=== PATIENT | female | born 1970 | race Caucasian/White ===

== ENCOUNTER 2019-08-15 16:52 | Emergency (ER) | payer MEDICAID, SELFPAY ==
[2019-08-15] VITALS (29 sets, daily range): BP systolic 145–261; BP diastolic 85–149; PULSE 77–128; RESP 14–34; TEMP 36.5; O2SAT 94–100
--- NOTE | 2019-08-15 16:51 | DI.CT_ITS ---
EXAM: CT HEAD - STROKE PROTOCOL CLINICAL HISTORY: headache, facial droop. TECHNIQUE: Imaging Protocol: Axial computed tomography images with coronal and sagittal reformatted images were created and reviewed COMPARISON: No exams were available for comparison FINDINGS: Ventricles and Extra axial spaces: Please see below Hemorrhage: There is a large intraparenchymal hemorrhage present. It measures 4.3 x 2.7 x 4.5 cm. I t is centered in the right basal ganglia with extension into right thalamus inferiorly and the diggs radiata superiorly. There is intraventricular hemorrhage in the right lateral ventricle. There is a mass effect on the right lateral ventricle and 3rd ventricle with findings suggesting uncal herniat ion. There also appears to be a leftward shift of approximately 6 mm. Cerebral parenchyma: Intraparenchymal hemorrhage as described above. Midline shift: Please see above Brainstem/Cerebellum: Normal. Calvarium: Normal. Visualized Paranasal sinuses/Mastoids: Clear. Soft Tissues: Unremarkable. Limitations: There is significant patient motion artifact. IMPRESSION: Large intraparenchymal hemorrhage with intraventricular hemorrhage noted in the right lateral ventric le. It causes a mass effect on the right lateral ventricle and 3rd ventricle with findings suggestin g uncal herniation. There is a leftward shift of approximately 6 mm. RADIATION DOSE DELIVERED: DATA REPOSITORY: All CT scans at this facility are submitted to the National Radiology Data Registry (NRDR) Dose Index Registry (DIR) with the [employer] (A[employer]). RADIATION OPTIMIZATION: All CT scans at this facility use at least one of these dose optimization te chniques: automated exposure control; mA and/or kV adjustment per patient size (includes targeted exa ms where dose is matched to clinical indication); or iterative reconstruction.
--- NOTE | 2019-08-15 16:53 | DI.RAD_ITS ---
EXAM: XR PORTABLE CHEST AP CLINICAL HISTORY: CVA, weakness TECHNIQUE: 2D digital imaging was performed. COMPARISON: No exams were available for comparison FINDINGS: MEDIASTINUM: Normal. HEART: Normal. PULMONARY VASCULATURE: Normal. LUNGS: Mild atelectasis in the left lower lobe. PLEURAL SPACE: No pleural effusion or pneumothorax. BONE:Normal. OTHER FINDINGS:The endotracheal tube is at the level of the clavicles 6 cm from the fransisca. The naso gastric tube passes into the stomach. IMPRESSION: Mild atelectasis in the left lower lobe. DATA REPOSITORY: RADIATION DOSE DELIVERED:
--- NOTE | 2019-08-15 16:56 | DI.CT_ITS ---
EXAM: CT CERVICAL SPINE WO CLINICAL HISTORY: fall, headache. TECHNIQUE: Imaging Protocol: Axial computed tomography images with coronal and sagittal reformatted images were created and reviewed COMPARISON: No exams were available for comparison FINDINGS: The odontoid is intact. The lateral masses are well aligned. There is no acute fracture or subluxat ion. There is straightening of the normal cervical lordosis. This may be due to patient positioning or muscle spasm. 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 The soft tissues are unrema rkable. The lung apices are clear. Degenerative changes are seen in the cervical spine. IMPRESSION: No acute fracture or subluxation in the cervical spine. RADIATION DOSE DELIVERED: DATA REPOSITORY: All CT scans at this facility are submitted to the National Radiology Data Registry (NRDR) Dose Index Registry (DIR) with the [employer] (ACR). RADIATION OPTIMIZATION: All CT scans at this facility use at least one of these dose optimization te chniques: automated exposure control; mA and/or kV adjustment per patient size (includes targeted exa ms where dose is matched to clinical indication); or iterative reconstruction.
--- NOTE | 2019-08-15 16:56 | ED.GENADUL_ITS ---
Discharge Plan Discharge Details Chief Complaint: CVA/TIA Primary Care Provider: Natalie Mi ED Provider: Iraj Augustin Home Meds and New Rx's Prescriptions: No Action HYZAAR 1 TAB tablet 1 tab PO DAILY Qty: 90 RF: 3 IMITREX 100 MG tablet 100 mg PO PRN STAT MONTGOMERY Qty: 9 RF: 5 INDERAL 80 MG tablet 1.5 tab PO BID Qty: 270 RF: 3 PHENERGAN 12.5 MG/SUPP.RECT SUPP.RECT 1 supp.rect RC STAT PRN Qty: 9 RF: 2 Medical Decision Making 48-year-old female with a history of hypertension for which her record states she takes Hyzaar and Inderal. 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 EMS was called immediately after the onset approximately 1615 hrs. They state that she was hypertensive en route and developed vomiting for which she was given Zofran. Patient arrives to the ED with a pulse of 91, blood pressure 205/130 with an exam that revealed slurred speech, left facial droop with left hemiparesis of arm and leg. Patient referred for stat CT scan of the head which reveals a right intraparenchymal hemorrhage, centered at basal ganglia. She had fallen and therefore a CT scan of the cervical spine was obtained as well. The CT of the cervical spine showed no acute fracture or subluxation. The patient had progressive somnolence and became less responsive to voice, her gag reflex was depressed and I made the decision to intubate the patient, which was performed without difficulty. Given her hypertension, patient was started on nicardipine drip. She was also given 10 mg of labetalol. Sedation was initiated with midazolam drip as well as propofol. [facility] was contacted for transfer and patient accepted in transfer by Dr. Harper. Patient's records note her next of kin to be Silvio Walsh, her father, with a phone number listed as [phone]. I called this number with no answer. Finally, Dr. Harper and I had discussed performing CT angiogram if time allowed, CAROL[facility] arrived prior to the study being completed. Addendum: I discussed the patients presentation, findings, and transfer with her sister Jules Brasher Lab Data Lab results reviewed: Yes I reviewed the patient's lab results. Labs: Laboratory Results - last 24 hr 08/15/19 08/15/19 08/15/19 16:53 16:53 17:06 WBC 11.08 H RBC 5.35 H Hgb 16.3 H Hct 46.1 H MCV 86.2 MCH 30.5 MCHC 35.4 RDW 12.2 Plt Count 403 H MPV 11.3 H Immature Gran % 0.5 Neutrophils % 63.0 Lymphocytes % 27.7 Monocytes % 6.5 Eosinophils % 1.9 Basophils % 0.4 Absolute Neutrophils 6.98 H Absolute Lymphocytes 3.07 Absolute Monocytes 0.72 H Absolute Eosinophils 0.21 Absolute Basophils 0.04 PT 10.3 INR 1.0 Sodium 140 Potassium 3.3 L Chloride 103 Carbon Dioxide 23.6 Anion Gap 13.4 H BUN 14 Creatinine 0.94 Estimated GFR/1.73 m2 >= 60.00 Glucose 140 H Calcium 8.6 Magnesium 1.8 Total Bilirubin 0.6 AST 21 ALT 30 Alkaline Phosphatase 100 Troponin I < 0.05 Total Protein 8.1 Albumin 4.0 ECG Data Attestation: I personally reviewed and interpreted this ECG (s) as follows: Interpretation: Normal sinus rhythm, rate of 91, QRS is narrow, no ST segment elevation present. HPI General Mode of arrival: EMS . Date/Time Provider Initiated Documentation: 08/15/19 16:59 . Limitations to Documentation: altered mental status . Information obtained by: patient and EMS . History of Present Illness 48 year old F presents to the emergency department with the chief complaint of Headache and left-sided weakness abruptly prior to presentation, described as severe, and is localized to the head, left, upper extremity and lower extremity. Patient started experiencing this minute(s) and it has been constant. No relieving factors improve symptom(s), No exacerbating factors reported . Patient notes nausea/vomiting. Patient did receive the following treatments prior to arrival, other (Ondansetron) Related Data Home Medications Medication Instructions Recorded Confirmed Hyzaar 1 tab PO DAILY #90 12/30/10 Imitrex 100 mg PO PRN STAT MONTGOMERY #9 12/30/10 Inderal 1.5 tab PO BID #270 07/28/11 Phenergan 1 supp.rect RC STAT PRN #9 12/30/10 Allergies Allergy/AdvReac Type Severity Reaction Status Date / Time No Known Allergies Allergy Unverified 08/15/19 18:18 Review of Systems Narrative: Reported to occur approximately 1615 hrs. [facility] Social History Do you feel safe at home: Yes Do you feel safe in your relationship?: Yes Exam Narrative Exam Narrative: GEN: awake, alert, vomitus around oropharynx. HEAD: Normocephalic, atraumatic ENT: Mucous membranes moist, oropharynx unremarkable, External ear exam unremarkable EYES: PERRL, EOMI NECK: Full ROM, no ADAM, no menigismus CHEST/RESP: Nontender, clear to auscultation bilateral, no wheeze/rhonchi/rales CARDIOVASCULAR: RRR, no murmur, rub snow. 2+ Rad pulse bilateral ABDOMEN: Soft, nontender, no mass. +Bowel sounds EXT: Full ROM, no edema, no rash Neuro: Left facial droop, left arm and left leg hemiparalysis. Psych: Speech slurred Procedures Intubation Time out performed: Yes sedative: Etomidate Mg Given: 2 paralytic: Succinylcholine Mg Given: 100 Laryngoscope: Eric ET Tube Size: 7.5 ET Tube Uncuffed: Yes Tube Secured Depth (cm): 23 Tube Secured Location: teeth Tube Placement Confirmation: visualized tube passing through cords and equal breath sounds bilaterally Patient Tolerated Procedure: no complications Critical Care Time Critical Care Time Critical Care Time: Yes Total Critical Care Time: 60 Attestation: Exclusive of procedure time. Includes review of records, discussion with consultants, bedside management.
--- NOTE | 2019-08-15 17:15 | DI.VRAD_ITS ---
PROCEDURE INFORMATION: Exam: CT Head Without Contrast Exam date and time: 08/15/2019 4:52 PM Age: 48 years old Clinical indication: Altered mental status/memory loss TECHNIQUE: Imaging protocol: Computed tomography of the head without contrast. Other technique: STROKE PROTOCOL was implemented. COMPARISON: No relevant prior studies available. FINDINGS: Large area of acute hemorrhage centered in the right basal ganglia measuring 4.3 by 2.7 x 4.5 cm. There is prominent compression of the right lateral ventricle and 3rd ventricle and some extent even the left lateral ventricle. The 4th ventricle does not appear to be compressed. The basilar cisterns are still patent. However there is diffuse compression of the cortical sulci throughout both cerebral hemispheres. IMPRESSION: Large area of acute hemorrhage centered in the right basal ganglia with a moderate amount of mass effect upon the ventricles and cortical sulci. Small amount of blood is also seen in the frontal horn of the right lateral ventricle. These findings were discussed with Dr. Iraj Augustin by telephone at 5:13 p.m. Eastern standard time on August 15, 2019. Dictated and Authenticated by: Mansoor Li MD. Ordering:KEMAL Galo MD
[2019-08-15] MEDS: Ondansetron 4 MG/2 ML VIAL IVP (17:23)
--- NOTE | 2019-08-15 17:23 | DI.VRAD_ITS ---
PROCEDURE INFORMATION: Exam: CT Cervical Spine Without Contrast Exam date and time: 08/15/2019 4:57 PM Age: 48 years old Clinical indication: Injury or trauma; Fall; Work related; Initial encounter; Blunt trauma; Injury details: PT fell, current stroke TECHNIQUE: Imaging protocol: Computed tomography images of the cervical spine without contrast. COMPARISON: No relevant prior studies available. FINDINGS: No prevertebral soft tissue swelling. Slight reversal the normal cervical lordosis. No acute fracture or subluxation. C2-C3-no significant stenosis. Congenital fusion of C2 and C3. C4-C5-mild spurring of mildly narrowing the left neural foramen. U8-R9-oinnlarn loss of disc height. Moderate central disc osteophyte complex causing mild stenosis of the spinal canal and mild narrowing of both neural foramina C6-C7-mild left paracentral disc osteophyte complex causing mild stenosis of the spinal canal and mild narrowing of the entrance to the left neural foramen. IMPRESSION: 1. No acute fracture or subluxation. 2. Moderate degenerative changes as above Dictated and Authenticated by: Mansoor Li MD. Ordering:KEMAL Galo MD
[2019-08-15] MEDS: niCARdipine 25 MG in Normal Saline 240 ML 50 MG IV (17:24)
[2019-08-15] MEDS: Normal Saline 1,000 ML 150 ML IV (17:24)
[2019-08-15] MEDS: Succinylcholine 200 MG/10 ML VIAL 100 MG IVP (17:30)
[2019-08-15] MEDS: Etomidate 20 MG/10 ML VIAL IVP (17:30)
[2019-08-15] MEDS: MIDAZOLAM 50 MG in Normal Saline 90 ML IV (17:33)
[2019-08-15 17:36] LABS: Abs Immature Grans 0.06 k/cumm (0.0-0.09); Absolute Basophil Count 0.04 k/cumm (0.0-0.2); Absolute Eosinophil Count 0.21 k/cumm (0.0-0.7); Absolute Lymphocyte Count 3.07 k/cumm (1.2-3.4); Absolute Monocyte Count 0.72 k/cumm (0.11-0.7); Absolute Neutrophil Count 6.98 k/cumm (1.2-6.7); Basophils % 0.4; Eosinophils % 1.9; HCT 46.1 % (36.0-46.0); HGB 16.3 g/dL (12.0-15.5); Immature Grans % 0.5 %; Lymphocytes % 27.7; Mean Corp. HGB Concentration 35.4 g/dL (32.0-36.0); Mean Corpuscular Hemoglobin 30.5 pg (27.0-33.0); Mean Corpuscular Volume 86.2 fL (80-95); Mean Platelet Volume 11.3 fL (8.0-11.0); Monocytes % 6.5; Platelet Count 403 x1000/uL (130-400); RBC 5.35 m/cumm (4.00-5.20); RBC Distribution Width 12.2 % (11.7-14.6); White Blood Cell Count 11.08 k/cumm (4.4-10.8)
[2019-08-15] MEDS: Midazolam 2 MG/2 ML VIAL IVP (17:36)
[2019-08-15 17:37] LABS: Prothrombin Time 10.3 sec (9.3-11.0)
[2019-08-15 17:42] LABS: ALT 30 U/L (14-59); AST 21 U/L (15-37); Alkaline Phosphatase 100 U/L (46-116); Anion Gap 13.4 mmol/L (3-11); BUN 14 mg/dL (7-18); Bilirubin, Total 0.6 mg/dL (0.2-1.0); CO2 23.6 mmol/L (21.0-32.0); CREATININE 0.94 mg/dL (0.55-1.02); Calcium 8.6 mg/dL (8.5-10.1); Chloride 103 mmol/L (98-107); Glucose 140 mg/dL (74-106); Magnesium 1.8 mg/dL (1.8-2.4); Potassium 3.3 mmol/L (3.5-5.1); Sodium 140 mmol/L (136-145); Total Protein 8.1 g/dL (6.4-8.2); Troponin I < 0.05 ng/Ml (<0.06)
--- NOTE | 2019-08-15 17:43 | NUR.NOTE ---
Nursing Note: Respiratory at bedside (Caden). PT pre-oxygenated with BVM and supplemental oxygen at 15 lpm. OPA inserted. Medications administered by Real (20mg of Etomidate IVP and 100mg of Sux IVP: See MAR for administration details). MD Augustin intubated PT. 1730. ET tube marked: 23 at the teeth. ET tube bulb inflated with 10cc of air. ET tube placement confirmed the following: Direct visualization of the ET tube passing the vocal chords, Condensation in the tube, positive breath sounds in all lung graves, negative epigastric sounds, good compliance with BVM. ET tube wilson inserted. Pt placed on Vent, settings (RR of 15, TV 400, FI02 50, PEEP of 5%). Vitals at this time: BP 227/114, HR 114, RR 25, Airway secured.
[2019-08-15] MEDS: Propofol 200 MG/20 ML VIAL 60 MG IVP (17:57)
[2019-08-15] MEDS: PROPOFOL 500 MG/50 ML BTL 5.574 MG IVPB (17:59)
[2019-08-15] MEDS: Normal Saline Flush 10 ML SYR IVP (18:04)
[2019-08-15] MEDS: Labetalol 100 MG/20 ML VIAL 10 MG IVP (18:08)
--- NOTE | 2019-08-15 18:40 | NUR.NOTE ---
Nursing Note: PT report transferred to [facility] flight crew ( Angelique RN and Bereket Freelance Art Director). At the time of transfer ET tube was in place, vitals stable. All Pt care, information, treatments, medications, and interventions transferred at 1835. Pt transfer report called to [facility] discharge planner (Milagro).
--- NOTE | 2019-08-15 18:52 | DI.VRAD_ITS ---
PROCEDURE INFORMATION: Exam: XR Chest, 1 View Exam date and time: 08/15/2019 4:54 PM Age: 48 years old Clinical indication: Other: Stroke TECHNIQUE: Imaging protocol: XR of the chest Views: 1 view. COMPARISON: No relevant prior studies available. FINDINGS: Tubes, catheters and devices: Endotracheal tube its tip 6 cm proximal to the fransisca. NG tube is in the mid stomach. Lungs: Otherwise the lungs are fairly well expanded. Pleural space: Unremarkable. No pleural effusion. No pneumothorax. Heart/Mediastinum: Unremarkable. No cardiomegaly. Vasculature: Minimal crowding of vascular markings at the lung bases. Bones/joints: Unremarkable. IMPRESSION: Minimal atelectasis at the lung bases Dictated and Authenticated by: Mansoor Li MD. Ordering:KEMAL Galo MD
== END 2019-08-15 18:30 ==
LOC: ER 17:50
PROVIDERS: Emergency Provider Emergency Medicine; PCP Physician Assistant
DX: I61.5 Nontraumatic intracerebral hemorrhage, intraventricular (principal); I61.8 Other nontraumatic intracerebral hemorrhage; I10 Essential (primary) hypertension; R11.2 Nausea with vomiting, unspecified; I69.154 Hemiplegia and hemiparesis following nontraumatic intracerebral hemorrhage affecting left non-dominant side; R40.0 Somnolence
CPT/HCPCS: 31500; 36415; 36416; 51702; 80053; 82962; 93005; 96365; 96368; 96375; 96376; 99291; 70450; 71045; 72125; 83735; 84484; 85025; 85610; 93010; J2250; J2405; J2704; J3490

== ENCOUNTER 2020-04-08 12:36 | Outpatient (CLI) | payer MEDICAID, SELFPAY ==
--- NOTE | 2020-04-08 10:32 | DI.RAD_ITS ---
EXAM: XR KNEE LT 4V AP,LAT,DEONNA,PAT CLINICAL HISTORY: fell on the left knee,injury, pain,s89.92xa. TECHNIQUE: 2D digital imaging was performed. COMPARISON: No exams were available for comparison FINDINGS: BONES: No acute fracture is present. No bony destructive lesion is seen. JOINTS: The knee is normally aligned. No joint effusion is seen. SOFT TISSUE: Normal. IMPRESSION: No acute fracture or dislocation. DATA REPOSITORY: RADIATION DOSE DELIVERED:
== END 2020-04-08 12:56 ==
PROVIDERS: PCP Family Medicine; Visit Provider Family Medicine
DX: M25.562 Pain in left knee (principal)
CPT/HCPCS: 73564

== ENCOUNTER 2020-04-16 01:33 | Outpatient (CLI) | payer MEDICAID, SELFPAY ==
--- NOTE | 2020-04-16 14:00 | NS.NUTBLAN_ITS ---
Thao and her mother attended Medical Nutrition Therapy for Thao for low sodium diet education s/p stroke Thao had in August 2019. Medical chart indicates 20 lbs weight in last 6 months, BMI: 31. Thao has not regained us of her legs or her left hand and is cared for by her mother. Thao is treated with metropolol 150 mg BID. Her BP tends to run 130-140/90-100. Here today to get education on how to best follow low sodium, DASH diet for cardiac health. Diet recall indicates mostly home cooked meals but with high intakes of salt (chips, arnold, chicken strips) and moderate intakes of vegetables, fish and legumes. Thao also drinks 2-3 cups coffee and 2-3 cups of coke daily. Education today focused on meal plans that fit entire family and what to add to provide Thao with more monounstaturated fats, seafood, legumes, and increased intake of fruits and vegetables. Meal plans provided. Encouraged reduction in caffeinated beverages to no more than 3 daily. Encouraged reading labels and avoiding foods with > 250 mg sodium per serving, keeping total sodium intake to < 1500 mg daily. No follow up visit planned. Thao and mother have contact information for questions/concerns in future.
== END 2020-04-16 01:53 ==
PROVIDERS: PCP Family Medicine; Visit Provider Dietitian, Registered
DX: I10 Essential (primary) hypertension (principal); Z86.73 Personal history of transient ischemic attack (TIA), and cerebral infarction without residual deficits; Z71.3 Dietary counseling and surveillance
CPT/HCPCS: 97802

== ENCOUNTER 2021-07-05 00:24 | Outpatient (CLI) | payer MEDICAID, SELFPAY ==
--- NOTE | 2021-07-05 07:30 | DI.RAD_ITS ---
Exam(s) XR LUMBAR SPINE COMPLETE EXAM: XR LUMBAR SPINE COMPLETE CLINICAL HISTORY: LOW BACK PAIN, M54.50. TECHNIQUE: 2D digital imaging was performed. COMPARISON: No exams were available for comparison FINDINGS: BONES: No fracture or destructive lesion. Vertebral bodies are unremarkable. Mild L4-5 L5-S1. Facet hypertrophy identified. DISKS: Intervertebral disc spaces are maintained. L5-S1 disc space not well profiled. ALIGNMENT: Lumbar spinal alignment is within normal limits. SOFT TISSUE: Mild aortic calcification. IMPRESSION: Mild degenerative changes. DATA REPOSITORY: RADIATION DOSE DELIVERED:
== END 2021-07-05 00:44 ==
PROVIDERS: PCP Family Medicine; Visit Provider Family Medicine
DX: M54.59 Other low back pain (principal); M47.817 Spondylosis without myelopathy or radiculopathy, lumbosacral region
CPT/HCPCS: 72110

== ENCOUNTER 2022-02-16 01:52 | Outpatient (CLI) | payer MEDICAID, SELFPAY ==
[2022-02-16 13:13] LABS: ALT 74 U/L (14-59); AST 43 U/L (15-37); Albumin 3.9 g/dL (3.4-5.0); Alkaline Phosphatase 87 U/L (46-116); Anion Gap 8.7 mmol/L (3-11); BUN 12 mg/dL (7-18); Bilirubin, Total 1.1 mg/dL (0.2-1.0); CO2 31.3 mmol/L (21.0-32.0); Calcium 9.3 mg/dL (8.5-10.1); Calculated LDL 157 mg/dL (<100); Chloride 99 mmol/L (98-107); Cholesterol 231 mg/dL (<200); Estimated GFR 67.36 (mL/min/1.73m2); Glucose 118 mg/dL (74-106); HDL Cholesterol 40 mg/dL (40-60); Potassium 3.7 mmol/L (3.5-5.1); Sodium 139 mmol/L (136-145); TSH (W/Ref FT4) 0.92 uIU/mL (0.36-3.74); Total Protein 8.4 g/dL (6.4-8.2); Triglyceride 172 mg/dL (<150)
[2022-02-20 17:00] LABS: Renin Activity, Plasma 11 ng/mL/h
== END 2022-02-16 01:53 | disposition home or self-care (01) ==
LOC: LOS 01:52
PROVIDERS: PCP Family Medicine; Visit Provider Family Medicine
DX: I10 Essential (primary) hypertension (principal); I63.89 Other cerebral infarction
CPT/HCPCS: 36415; 80053; 80061; 84244; 84443

== ENCOUNTER → 2022-04-11 01:41 | Outpatient (CLI) | payer MEDICAID, SELFPAY ==
--- NOTE | 2022-04-11 07:45 | DI.MAMMO_ITS ---
Exam(s) MG MAMMO SCREENING 60 MIN DUR EXAM: MG MAMMO SCREENING 60 MIN DUR CLINICAL HISTORY: breast cancer screening,z12.39. TECHNIQUE: Bilateral full field digital CC and MLO mammographic images were obtained with 3D tomosyn thesis and utilizing computer aided detection (CAD). COMPARISON: None. Last mammogram was in 2009. FINDINGS: There are no CAD designations. There are no new spiculated masses nor malignant appearing microcalcification groups. There is no significant architectural distortion nor skin thickening-retraction. IMPRESSION: No radiographic evidence of malignancy. BI-RADS Category 1 - Negative Breast Density - Category B - Scattered areas of fibroglandular density Breast density Category C or D implies that the patient has dense breast tissue. Dense breast tissue can make it harder to find cancer on a mammogram. Dense breast tissue is also associated with an incr eased risk of breast cancer. This information about the result of the mammogram report was provided to the patient to raise their awareness. Use this report when you speak with the patient about their risks for breast cancer, which includes their family history. At that time, you may recommend additional screening tests (Ultrasoun d or MRI) as these tests may add significant information. A negative radiographic report should not delay biopsy if a dominant or clinically suspicious mass is present. Up to ten percent of cancers are not identified on mammography. A negative report may reinforce clinical impression. Adenosis and dense breasts may obscure an underlying neoplasm. False positive reports average 6 to 10%. Patient will receive a letter notifying them of these results.
== END ==
PROVIDERS: PCP Family Medicine; Visit Provider Family Medicine
DX: Z12.31 Encounter for screening mammogram for malignant neoplasm of breast (principal)
CPT/HCPCS: 77063; 77067

== ENCOUNTER 2022-08-08 12:56 | Outpatient (REF) | payer MEDICAID, SELFPAY ==
--- NOTE | 2022-08-08 10:30 | PAPFT_PTH ---
PATIENT: Thao Walsh LOC: [facility]#:[id number] AGE/SX: 51/F ROOM: RE08/08/[address]: Conchis Light MD, DC : 1970 BED: DIS: 08/08/2022 SPEC #: [id number] RECD: 08/08/22 13:13 STATUS: DENI REQ #: [id number] VALERIA: 08/08/22 10:[address]: Conchis Light [facility]PT: [facility] Cytology RECD BY: Belle Rodriguez Tissues: 1 - CX/ENDOCX FOR PAP SMEARS Procedures: PAP THIN PREP/UVM Screening HPV DNA PROBE Comments: [id number]
== END 2022-08-08 12:57 | disposition home or self-care (01) ==
LOC: LBN 12:56
PROVIDERS: PCP Family Medicine; Visit Provider Family Medicine
DX: Z12.4 Encounter for screening for malignant neoplasm of cervix (principal); Z11.51 Encounter for screening for human papillomavirus (HPV)
CPT/HCPCS: 88142; 87624

== ENCOUNTER → 2022-12-14 01:23 | Outpatient (CLI) | payer MEDICAID, SELFPAY ==
--- NOTE | 2022-12-14 08:15 | DI.RAD_ITS ---
Exam(s) XR RIBS RT W PA LAT CHEST EXAM: XR RIBS RT W PA LAT CHEST CLINICAL HISTORY: pain,rib injury,s29.9xxa TECHNIQUE: 2D digital imaging was performed. COMPARISON: CR,XR XR PORTABLE CHEST AP from 08/15/2019 FINDINGS: RIBS 3 VIEWS-right There is a fracture of the anterolateral aspect of the right 7th rib. No other rib fractures identif ied. No osseous lesions in the rib cage. CXR- 2 VIEWS: No lung contusion or pneumothorax. There is no pleural effusion evident. Heart size is normal and there is no significant mediastinal widening. IMPRESSION: 1. Mildly displaced right 7th rib fracture. 2. No ipsilateral lung nor pleural abnormality evident. No pneumothorax. DATA REPOSITORY: RADIATION DOSE DELIVERED:
== END ==
PROVIDERS: PCP Family Medicine; Visit Provider Physician Assistant Medical
DX: R07.89 Other chest pain (principal); R07.81 Pleurodynia; S22.31XA Fracture of one rib, right side, initial encounter for closed fracture
CPT/HCPCS: 71046; 71100

== ENCOUNTER → 2023-05-24 02:04 | Outpatient (CLI) | payer MEDICAID, SELFPAY ==
--- NOTE | 2023-05-24 07:45 | DI.MAMMO_ITS ---
Exam(s) MG MAMMO SCREENING 60 MIN DUR EXAM: MG MAMMO SCREENING 60 MIN DUR CLINICAL HISTORY: breast cancer screening,Z12.39. TECHNIQUE: Bilateral full field digital CC and MLO mammographic images were obtained with 3D tomosyn thesis and utilizing computer aided detection (CAD). COMPARISON: Prior mammograms were reviewed. FINDINGS: There are no new spiculated masses nor malignant appearing microcalcification groups. There is no significant architectural distortion nor skin thickening-retraction. IMPRESSION: No radiographic evidence of malignancy. BI-RADS Category 1 - Negative Breast Density - Category B - Scattered areas of fibroglandular density Breast density Category C or D implies that the patient has dense breast tissue. Dense breast tissue can make it harder to find cancer on a mammogram. Dense breast tissue is also associated with an incr eased risk of breast cancer. This information about the result of the mammogram report was provided to the patient to raise their awareness. Use this report when you speak with the patient about their risks for breast cancer, which includes their family history. At that time, you may recommend additional screening tests (Ultrasoun d or MRI) as these tests may add significant information. A negative radiographic report should not delay biopsy if a dominant or clinically suspicious mass is present. Up to ten percent of cancers are not identified on mammography. A negative report may reinforce clinical impression. Adenosis and dense breasts may obscure an underlying neoplasm. False positive reports average 6 to 10%. Patient will receive a letter notifying them of these results.
== END ==
PROVIDERS: PCP Family Medicine; Visit Provider Family Medicine
DX: Z12.31 Encounter for screening mammogram for malignant neoplasm of breast (principal)
CPT/HCPCS: 77063; 77067

== ENCOUNTER 2023-07-04 02:25 | Outpatient (CLI) | payer MEDICAID, SELFPAY ==
[2023-07-04 13:08] LABS: ALT 72 U/L (14-59); AST 44 U/L (15-37); Albumin 3.7 g/dL (3.4-5.0); Alkaline Phosphatase 104 U/L (46-116); Anion Gap 8.1 mmol/L (3-11); BUN 8 mg/dL (7-18); Bilirubin, Total 0.8 mg/dL (0.2-1.0); CO2 29.9 mmol/L (21.0-32.0); CREATININE 0.8 mg/dL (0.55-1.02); Calculated LDL 122 mg/dL (<100); Chloride 102 mmol/L (98-107); Cholesterol 220 mg/dL (<200); Glucose 101 mg/dL (74-106); HDL Cholesterol 44 mg/dL (40-60); Potassium 3.5 mmol/L (3.5-5.1); Sodium 140 mmol/L (136-145); TSH (W/Ref FT4) 1.68 uIU/mL (0.36-3.74); Total Protein 8.2 g/dL (6.4-8.2); Triglyceride 273 mg/dL (<150); Vitamin B12 893 pg/mL (193-986)
== END 2023-07-04 02:26 | disposition home or self-care (01) ==
LOC: LOS 02:26
PROVIDERS: PCP Family Medicine; Visit Provider Family Medicine
DX: I10 Essential (primary) hypertension (principal); R79.89 Other specified abnormal findings of blood chemistry; E03.9 Hypothyroidism, unspecified
CPT/HCPCS: 36415; 80053; 80061; 82607; 84443

== ENCOUNTER 2023-09-07 10:11 | Outpatient (CLI) | payer MEDICAID, SELFPAY ==
[2023-09-07 12:55] LABS: Hemoglobin A1C 5.5 % (<5.7)
[2023-09-07 12:56] LABS: ALT 48 U/L (14-59); AST 28 U/L (15-37); Albumin 3.7 g/dL (3.4-5.0); Alkaline Phosphatase 102 U/L (46-116); BUN 15 mg/dL (7-18); Bilirubin, Total 0.8 mg/dL (0.2-1.0); CREATININE 0.8 mg/dL (0.55-1.02); Calculated LDL 147 mg/dL (<100); Chloride 101 mmol/L (98-107); Cholesterol 222 mg/dL (<200); Glucose 122 mg/dL (74-106); HDL Cholesterol 48 mg/dL (40-60); Potassium 3.3 mmol/L (3.5-5.1); Sodium 141 mmol/L (136-145); Triglyceride 136 mg/dL (<150)
== END 2023-09-07 10:12 | disposition home or self-care (01) ==
LOC: LOS 10:12
PROVIDERS: PCP Family Medicine; Referring Provider Family Medicine; Visit Provider Family Medicine
DX: I10 Essential (primary) hypertension (principal); E11.9 Type 2 diabetes mellitus without complications
CPT/HCPCS: 36415; 80053; 80061; 83036

== ENCOUNTER 2024-05-01 10:48 | Observation (INO) | payer MEDICAID, SELFPAY ==
[2024-05-01] VITALS (33 sets, daily range): BP systolic 85–125; BP diastolic 48–81; PULSE 55–72; RESP 12–23; TEMP 36.1–37; O2SAT 88–98
--- NOTE | 2024-05-01 10:45 | RT.EKG_ITS ---
APPROVED REPORT Exam: Resting ECG Reason for Exam: lethargic hx stroke Patient Location: E HR:64 bpm ECG Measurements Heart Rate 64 AXIS FL 157 P 39 QRSd 96 QRS 5 QT 459 T 42 QTc 475 Conclusion Sinus rhythm...normal P axis, V-rate 60- 99 Low voltage, precordial leads...precordial leads <1.0mV
--- NOTE | 2024-05-01 11:05 | DI.CT_ITS ---
Exam(s) CT BRAIN NECK CTA EXAM: CT BRAIN NECK CTA CLINICAL HISTORY: slurred speech. TECHNIQUE: Imaging Protocol: Axial CT angiography was performed with multi-slice acquisition and mu lti-planar and/or 3D reconstructions. CONTRAST MATERIAL: Intravenous: Omnipaque 350 contrast volume:70 mL COMPARISON: CT CT CERVICAL SPINE WO from 08/15/[address] HEAD - STROKE PROTOCOL from 08/15/2019 FINDINGS: CT Head W/O and W: Ventricles and Extra axial spaces: Normal in size and morphology for the patient's age. Hemorrhage: None. Cerebral parenchyma: There is an a area of encephalomalacia involving the right MCA distribution. The patient had a history of a right intraparenchymal hemorrhage. There are areas of decreased attenuati on seen in the white matter likely reflecting chronic microvascular ischemic disease. There is no mas s effect. There is again seen an area of encephalomalacia in the left cerebellum. Incidental note is what appears to be a venous angioma in the right frontal lobe. Midline shift: None. Brainstem/Cerebellum: Normal. Calvarium: Normal. Visualized Paranasal sinuses/Mastoids: Mucosal thickening is seen in the visualized paranasal sinuses but no fluid levels are seen. The mastoid air cells are clear. Soft Tissues: Unremarkable. Enhancement: Unremarkable. CTA Neck W: Common Carotid: Right: No dissection, occlusion or significant stenosis. There is mild atherosclerotic calcification in the carotid bulb. Left: No dissection, occlusion or significant stenosis. Mild atherosclerotic calcification is seen i n the carotid bulb. External Carotid: Right: No occlusion or significant stenosis. Left: No occlusion or significant stenosis. Internal Carotid: Right: No dissection, occlusion or significant stenosis. There is marked stenosis at the origin of t he right internal carotid artery (at least 90 percent). (Series 11, image 65). Left: No dissection, occlusion or significant stenosis. Mild atherosclerotic calcification is presen t. Vertebral Artery: Right: No dissection, occlusion or significant stenosis. Left: No dissection, occlusion or significant stenosis. Lung Apices: Paraseptal emphysematous changes are present. Bones: Within normal limits for the patient's age. There is reversal of the normal cervical lordosis. 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 Soft Tissues: Normal. Thyroid gland: Unremarkable. CTA Brain W: Internal Carotid Arteries: Normal. Anterior Cerebral Arteries: Right: No aneurysm, occlusion or significant stenosis. Left: No aneurysm, occlusion or significant stenosis. Middle Cerebral Arteries: Right: No aneurysm, occlusion or significant stenosis. Left: No aneurysm, occlusion or significant stenosis. Posterior Cerebral Arteries: There is origin of the posterior cerebral arteries bilaterally. Th is is a normal variant. Right: No aneurysm, occlusion or significant stenosis. Left: No aneurysm, occlusion or significant stenosis. Vertebral Arteries: Right: No aneurysm, occlusion or significant stenosis. 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 Left: No aneurysm, occlusion or significant stenosis. Basilar Artery: No aneurysm, occlusion or significant stenosis. IMPRESSION: 1. No large vessel occlusion or significant stenosis on the CT angiography of the head. 2. No acute intracranial process. 3. At least 90 percent stenosis at the origin of the right internal carotid artery. 4. Hypoplastic right vertebral artery. RADIATION DOSE DELIVERED: 1,967.44mGy.cm Total DLP DATA REPOSITORY: All CT scans at this facility are submitted to the National Radiology Data Registry (NRDR) Dose Index Registry (DIR) with the [employer] (ACR). RADIATION OPTIMIZATION: All CT scans at this facility use at least one of these dose optimization te chniques: automated exposure control; mA and/or kV adjustment per patient size (includes targeted exa ms where dose is matched to clinical indication); or iterative reconstruction.
--- NOTE | 2024-05-01 11:07 | W.ED.GENAD ---
Discharge Plan Disposition Patient Disposition: Admit to [facility] Discharge Details Clinical Impression: DANIEL (acute kidney injury), Hypokalemia Primary Care Provider: [facility] ED Provider: Gabriela Mejias Home Meds and New Rx's Prescriptions: No Action diclofenac potassium 50 mg tablet 50 mg PO BID Qty: 20 0RF Rx Instructions: Take with food, do not take any [id number] anti-inflammatories with this. potassium chloride 10 mEq tablet extended release 20 meq PO DAILY Qty: 180 4RF pregabalin [Lyrica] 50 mg capsule 50 mg PO TID Qty: 90 5RF (DME) E stim See Rx Instructions .Route .MEDSUPPLY Qty: 1 0RF Rx Instructions: For neuromuscular re-education following her thalamic stroke meloxicam 15 mg tablet 15 mg PO DAILY PRN (Reason: left knee pain) Qty: 90 0RF Rx Instructions: use sparingly as it can increase blood pressure atorvastatin 40 mg tablet 40 mg PO QPM Qty: 90 4RF duloxetine 30 mg capsule,delayed release(DR/EC) 30 mg PO QDAY Qty: 90 4RF Rx Instructions: take in PM duloxetine 60 mg capsule,delayed release(DR/EC) 60 mg PO DAILY Qty: 90 4RF Rx Instructions: take in AM metoprolol succinate 200 mg tablet extended release 24 hr 200 mg PO BID Qty: 180 3RF Rx Instructions: mid to late afternoon take BP and if less than 90/60, hold the evening dose hydrochlorothiazide 25 mg tablet 25 mg PO QAM Qty: 90 4RF doxazosin 1 mg tablet 2 mg PO QHS Qty: 180 4RF pantoprazole 20 mg tablet,delayed release (DR/EC) 20 mg PO DAILY Qty: 90 4RF cyanocobalamin (vitamin B-12) 1,000 mcg tablet 1,000 mcg PO DAILY Qty: 90 4RF melatonin 5 mg capsule 5 mg PO HS Qty: 90 4RF multivitamin with minerals Capsule 1 cap PO DAILY Qty: 90 4RF baclofen 5 mg tablet 5 mg PO BID Qty: 180 3RF diclofenac sodium 1 % gel 2 g topical QID Qty: 100 3RF Rx Instructions: apply to single elbow, wrist or hand; for hand includes palm/fingers/back of hand mirabegron 50 mg tablet extended release 24 hr 50 mg PO DAILY Qty: 90 4RF losartan 100 mg tablet 100 mg PO DAILY Qty: 90 6RF HPI General Date/Time Provider Initiated Documentation: 05/01/24 10:49. HPI Narrative: Thao is a 53 year old female who presents to the emergency department today for evaluation of altered mental status/slurred speech. Sister and caregiver reported to EMS that this morning she woke up with slurred/slowed speech and did not quite seem like herself. This resolved by the time ambulance arrived. On arrival EMS found her to be hypotensive, blood pressure systolic 80. She reports she woke up this morning feeling tired with quiet speech, denies feeling like her speech is slurred or feeling of confusion. She was able to transfer to her chair and to the stretcher. She denies fever/chills, headache, vision changes, dizziness, congestion, sore throat, ear pain, cough, chest pain, shortness of breath, nausea/vomiting, change in p.o. intake, abdominal pain, change in bowel or bladder function, black/tarry stools, weakness, paresthesias. She think she may have taken 2 doses of her losartan this morning by accident. Denies substance use or supplement use. She does have a history of stroke with left hemiparesis affecting the left side of her face, arm, and leg. Past medical history is significant for right thymic stroke, hypertension, and elevated LFTs. No known ill contacts. Last known well last night. Physical exam reassuring. Gaye is alert and oriented x 4, in no acute distress. She does have clear speech, slightly slow but appropriate. Cranial nerves II through XII intact as tested. PERRL, EOMs intact. Moist mucous membranes. Easy work of breathing, lung sounds clear bilaterally. Normal heart sounds. Abdomen is soft, nondistended, nontender to palpation. No CVA tenderness. 5 out of 5 muscle strength to upper and lower extremity on right side; sensation grossly intact. No pronator drift. D/dx includes but is not limited to: CVA/TIA (outside window for thrombolytics), ACS, cardiac arrhythmia, hypoglycemia, electrolyte imbalance, dehydration, liver or kidney dysfunction, occult infection such as UTI or PNA, antihypertensive overdose I independently interpreted the following tests: EKG reassuring, NSR rate 64, no changes c/w acute ischemia. Hypokalemia noted, potassium 3.0. Concern for DANIEL with creatinine elevated at 1.6, 0.8 previously on 09/07/2023. CBC, magnesium, COVID/flu/RSV reassuring. Troponins negative (5,6). UA not consistent with UTI; only trace leuks noted. CXR and head CT reassuring, no acute findings. While in the emergency department, Thao received p.o. potassium for supplementation and 500 cc normal saline started by EMS for blood pressure support. A a liter of Plasma-Lyte was administered to help maintain blood pressure support, as systolic remained in the 90s. Workup today significant for hypokalemia with DANIEL, with creatinine doubling since previous. Likely related to incorrect dosing of losartan. Presented case to Dr. Ramirez, [facility] hospitalist. Patient to be admitted to [facility]. Patient is agreeable with plan of care Related Data Home Medications ?Medication ?Instructions ?Recorded ?Confirmed diclofenac potassium 50 mg tablet 50 mg PO BID #20 tabs 12/13/22 05/01/24 E stim #1 ea 02/20/23 05/01/24 meloxicam 15 mg tablet 15 mg PO DAILY PRN left knee pain 02/20/23 05/01/24 #90 tabs atorvastatin 40 mg tablet 40 mg PO QPM #90 tabs 09/07/23 05/01/24 duloxetine 30 mg capsule,delayed 30 mg PO QDAY #90 caps 01/01/24 05/01/24 release duloxetine 60 mg capsule,delayed 60 mg PO DAILY #90 caps 01/01/24 05/01/24 release cyanocobalamin (vitamin B-12) 1,000 mcg PO DAILY #90 tabs 02/24/24 05/01/24 1,000 mcg tablet doxazosin 1 mg tablet 2 mg (2 x 1 mg) PO QHS #180 tabs 02/24/24 05/01/24 hydrochlorothiazide 25 mg tablet 25 mg PO QAM #90 tabs 02/24/24 05/01/24 melatonin 5 mg capsule 5 mg PO HS #90 caps 02/24/24 05/01/24 metoprolol succinate 200 mg 200 mg PO BID #180 tabs 02/24/24 05/01/24 tablet,extended release 24 hr multivitamin with minerals 1 cap PO DAILY #90 caps 02/24/24 05/01/24 pantoprazole 20 mg tablet,delayed 20 mg PO DAILY #90 tabs 02/24/24 05/01/24 release baclofen 5 mg tablet 5 mg PO BID #180 tabs 03/13/24 05/01/24 potassium chloride 10 mEq 20 meq (2 x 10 mEq) PO DAILY #180 03/25/24 05/01/24 tablet,extended release tabs pregabalin 50 mg capsule (Lyrica) 50 mg PO TID #90 caps 03/25/24 05/01/24 diclofenac sodium 1 % topical gel 2 g topical QID #100 grams 04/08/24 05/01/24 mirabegron 50 mg tablet,extended 50 mg PO DAILY #90 tabs 04/08/24 05/01/24 release 24 hr losartan 100 mg tablet 100 mg PO DAILY #90 tabs 04/24/24 05/01/24 Previous Rx's ?Medication ?Instructions ?Recorded diclofenac potassium 50 mg tablet 50 mg PO BID #20 tabs 12/13/22 E stim #1 ea 02/20/23 meloxicam 15 mg tablet 15 mg PO DAILY PRN left knee pain 02/20/23 #90 tabs atorvastatin 40 mg tablet 40 mg PO QPM #90 tabs 09/07/23 duloxetine 30 mg capsule,delayed 30 mg PO QDAY #90 caps 01/01/24 release duloxetine 60 mg capsule,delayed 60 mg PO DAILY #90 caps 01/01/24 release cyanocobalamin (vitamin B-12) 1,000 mcg PO DAILY #90 tabs 02/24/24 1,000 mcg tablet doxazosin 1 mg tablet 2 mg (2 x 1 mg) PO QHS #180 tabs 02/24/24 hydrochlorothiazide 25 mg tablet 25 mg PO QAM #90 tabs 02/24/24 melatonin 5 mg capsule 5 mg PO HS #90 caps 02/24/24 metoprolol succinate 200 mg 200 mg PO BID #180 tabs 02/24/24 tablet,extended release 24 hr multivitamin with minerals 1 cap PO DAILY #90 caps 02/24/24 pantoprazole 20 mg tablet,delayed 20 mg PO DAILY #90 tabs 02/24/24 release baclofen 5 mg tablet 5 mg PO BID #180 tabs 03/13/24 potassium chloride 10 mEq 20 meq (2 x 10 mEq) PO DAILY #180 03/25/24 tablet,extended release tabs pregabalin 50 mg capsule (Lyrica) 50 mg PO TID #90 caps 03/25/24 diclofenac sodium 1 % topical gel 2 g topical QID #100 grams 04/08/24 mirabegron 50 mg tablet,extended 50 mg PO DAILY #90 tabs 04/08/24 release 24 hr losartan 100 mg tablet 100 mg PO DAILY #90 tabs 04/24/24 Allergies Allergy/AdvReac Type Severity Reaction Status Date / Time atenolol AdvReac h/a's Verified 03/25/24 09:18 gold Au 198 AdvReac dermatitis Verified 03/25/24 09:18 General Stated Complaint: AMS/LOC CHOLO: 3 Review of Systems Narrative: see HPI Exam Const General: cooperative, comfortable, no acute distress and well developed Nutritional Appearance: overweight Orientation: alert and oriented x3 HENMT Head: normal to inspection Ears: hearing grossly normal bilaterally General nose exam: external nose normal Face and sinus: normal facial exam Mouth: oral mucosae normal, lip normal, tongue normal, oropharynx normal and no muffled voice Throat: posterior oropharynx normal and uvula midline Eyes Pupils: PERRL EOM: EOM intact bilaterally Resp Effort & Inspection: normal respiratory effort and able to speak in complete sentences Auscultation: clear to auscultation bilaterally Cardio Rate: regular rate Rhythm: regular rhythm GI Inspection: normal to inspection and non-distended Palpation: soft, not firm, no guarding and nontender General: No CVA tenderness Back/Spine/Pelvis Back: no CVA tenderness Neuro General: patient alert, patient oriented x3 and CN's II-XI intact bilaterally Cranial Nerves: CN's II-XI intact bilaterally, PERRL, EOM intact bilaterally, no nystagmus, facial strength normal (some weakness noted to L side of face (baseline)) and tongue midline Cognition: normal cognition Speech: speech normal Sensory Exam: no sensory deficits noted Other: 5 out of 5 muscle strength to upper and lower extremity on right side, weakness noted to left side per baseline Extrem General: capillary refill normal and no pedal edema Course Vital Signs Vital signs: Vital Signs Temperature 36.1 C L 05/01/24 10:51 Pulse 66 05/01/24 10:51 Respiratory Rate 18 05/01/24 10:51 Blood Pressure 94/51 L 05/01/24 10:51 Pulse Oximetry 96 05/01/24 10:51 Temperature 36.1 C L 05/01/24 10:51 Pulse 66 05/01/24 10:51 Respiratory Rate 18 05/01/24 10:51 Respiratory Effort Normal, Non-Labored 05/01/24 11:00 Blood Pressure 94/51 L 05/01/24 10:51 Pulse Oximetry 96 05/01/24 10:51 Medical Decision Making Imaging Data Radiologic Study: Radiologist's impression: Exam(s) XR CHEST 2V PA LATERAL EXAM: XR CHEST 2V PA LATERAL CLINICAL HISTORY: lethargy, ?PNA TECHNIQUE: 2D digital imaging was performed of the chest. Two images were obtained. PA and lateral views were obtained. COMPARISON: CR XR RIBS RT W PA LAT CHEST from 12/14/2022 FINDINGS: The lateral view is limited secondary to overlying left humerus. MEDIASTINUM: Normal. HEART: Normal. PULMONARY VASCULATURE: Normal. LUNGS: Clear. PLEURAL SPACE: No pleural effusion or pneumothorax. Pleural calcifications are again seen in the left hemithorax. BONE:Within normal limits for the patient's age. There are old healed left rib fractures again seen. There is inferior subluxation of the left humeral head relative to the glenoid. OTHER FINDINGS:Normal. IMPRESSION: 1. No acute pulmonary findings. 2. Inferior subluxation of the left humeral head relative to the glenoid. Radiologic Study #2: Radiologist's impression: Accession No. : [id number] Creator : NU RUELAS Dictator : NU RUELAS Direct Marketing Executive : Mattress Finisher : NU RUELAS Approver2 : Report Date : 05/01/2024 12:31:29 Exam(s) CT BRAIN NECK CTA EXAM: CT BRAIN NECK CTA CLINICAL HISTORY: slurred speech. TECHNIQUE: Imaging Protocol: Axial CT angiography was performed with multi-slice acquisition and multi-planar and/or 3D reconstructions. CONTRAST MATERIAL: Intravenous: Omnipaque 350 contrast volume:70 mL COMPARISON: CT CT CERVICAL SPINE WO from 08/15/[address] HEAD - STROKE PROTOCOL from 08/15/2019 FINDINGS: CT Head W/O and W: Ventricles and Extra axial spaces: Normal in size and morphology for the patient's age. Hemorrhage: None. Cerebral parenchyma: There is an a area of encephalomalacia involving the right MCA distribution. The patient had a history of a right intraparenchymal hemorrhage. There are areas of decreased attenuation seen in the white matter likely reflecting chronic microvascular ischemic disease. There is no mass effect. There is again seen an area of encephalomalacia in the left cerebellum. Incidental note is what appears to be a venous angioma in the right frontal lobe. Midline shift: None. Brainstem/Cerebellum: Normal. Calvarium: Normal. Visualized Paranasal sinuses/Mastoids: Mucosal thickening is seen in the visualized paranasal sinuses but no fluid levels are seen. The mastoid air cells are clear. Soft Tissues: Unremarkable. Enhancement: Unremarkable. CTA Neck W: Common Carotid: Right: No dissection, occlusion or significant stenosis. There is mild atherosclerotic calcification in the carotid bulb. Left: No dissection, occlusion or significant stenosis. Mild atherosclerotic calcification is seen in the carotid bulb. External Carotid: Right: No occlusion or significant stenosis. Left: No occlusion or significant stenosis. Internal Carotid: Right: No dissection, occlusion or significant stenosis. There is marked stenosis at the origin of the right internal carotid artery (at least 90 percent). (Series 11, image 65). Left: No dissection, occlusion or significant stenosis. Mild atherosclerotic calcification is present. Vertebral Artery: Right: No dissection, occlusion or significant stenosis. Left: No dissection, occlusion or significant stenosis. Lung Apices: Paraseptal emphysematous changes are present. Bones: Within normal limits for the patient's age. There is reversal of the normal cervical lordosis. 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 Soft Tissues: Normal. Thyroid gland: Unremarkable. CTA Brain W: Internal Carotid Arteries: Normal. Anterior Cerebral Arteries: Right: No aneurysm, occlusion or significant stenosis. Left: No aneurysm, occlusion or significant stenosis. Middle Cerebral Arteries: Right: No aneurysm, occlusion or significant stenosis. Left: No aneurysm, occlusion or significant stenosis. Posterior Cerebral Arteries: There is origin of the posterior cerebral arteries bilaterally. This is a normal variant. Right: No aneurysm, occlusion or significant stenosis. Left: No aneurysm, occlusion or significant stenosis. Vertebral Arteries: Right: No aneurysm, occlusion or significant stenosis. 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 Left: No aneurysm, occlusion or significant stenosis. Basilar Artery: No aneurysm, occlusion or significant stenosis. IMPRESSION: 1. No large vessel occlusion or significant stenosis on the CT angiography of the head. 2. No acute intracranial process. 3. At least 90 percent stenosis at the origin of the right internal carotid artery. 4. Hypoplastic right vertebral artery. RADIATION DOSE DELIVERED: 1,967.44mGy.cm Total DLP DATA REPOSITORY: All CT scans at this facility are submitted to the National Radiology Data Registry (NRDR) Dose Index Registry (DIR) with the [employer] (ACR). RADIATION OPTIMIZATION: All CT scans at this facility use at least one of these dose optimization techniques: automated exposure control; mA and/or kV adjustment per patient size (includes targeted exams where dose is matched to clinical indication); or iterative reconstruction. Quality:SDOH Health Related Social Needs: No Data to Display PFSH All Active Problems (Updated 05/01/24 @ 13:22 by Gabriela Jung) Hypokalemia (Acute) DANIEL (acute kidney injury) (Acute) Weakness (Acute) Elevated LFTs (Acute) Disordered sleep (Acute) Low back pain (Acute) Foot contusion (Acute) actually redness Left foot drop (Acute) Able to mobilize using indoor motorized wheelchair (Acute) Ankle pain (Acute) Memory changes (Chronic) Left arm weakness (Acute) Contusion of bone (Acute) Left knee Left knee injury (Acute) Chronic migraine (Acute) Hypertension (Chronic) Right thalamic stroke (Chronic) Medical History Elbow fracture, right Social History (Updated 05/12/23 @ 14:21 by Grace Ohara) Smoking/Tobacco Use Status: Never Second Hand Exposure: Yes Smoking risk assessment performed?: Yes Alcohol Intake: current Alcohol Intake frequency: a few times a week Alcohol type: hard liquor and other Drug use: Socially Substance use type: does not use Current gender identity: female Additional Social history: Social history unknown. PAWSS Have you Been Recently Intoxicated or Drunk Within the Last 30 days?: No Have you Ever Experienced Previous Episodes of Alcohol Withdrawal?: No Have you ever Experienced Withdrawal Seizures?: No Have you ever Experienced Delirium Tremens(DT)s?: No Have you ever undergone Alcohol Rehabilitation Treatment (i.e, inpt ot outpatient treatment programs)?: No Have you ever Experienced Blackouts?: No Have you ever Combined Alcohol with other Downers within the last 90 days?: No Have you ever Combined Alcohol with any other Substance of Abuse during the last 90 days?: No Positive Blood Alcohol level on Presentation? [PCS.BAL]: No Evidence of Increased Autonomic Activity (i.e. HR>120, tremor, sweating, agitation, nausea)?: No Result: 0
[2024-05-01 11:18] LABS: Abs Immature Grans 0.03 10^3/uL (0.0-0.06); Absolute Basophil Count 0.06 10^3/uL (0.0-0.2); Absolute Eosinophil Count 0.31 10^3/uL (0.0-0.7); Absolute Monocyte Count 0.66 10^3/uL (0.1-0.8); Absolute Neutrophil Count 6.04 10^3/uL (1.2-6.7); Basophils % 0.7 %; Eosinophils % 3.6 %; HCT 42.6 % (36.0-46.0); HGB 14.8 g/dL (11.2-15.7); Immature Grans % 0.3 %; Lymphocytes % 18.4 %; MCHC 34.7 % (32.0-36.0); MCV 89 fL (80-95); MPV 11.8 fL (8.0-11.0); Monocytes % 7.6 %; Neutrophils % 69.4 %; Platelet Count 282 10^3/uL (130-400); RBC 4.78 10^6/uL (3.93-5.22); RDW 12.4 % (11.7-14.6); RDW-SD 40.3 fL
[2024-05-01] MEDS: Normal Saline - Diluent 50 ML VIAL IJ (11:22)
[2024-05-01] MEDS: Omnipaque 350 MG/ML 500 ML BTL-Imaging package 70 ML IJ (11:23)
[2024-05-01 11:35] LABS: ALT 44 U/L (14-59); AST 24 U/L (15-37); Albumin 3.4 g/dL (3.4-5.0); Alkaline Phosphatase 116 U/L (46-116); Anion Gap 8.4 mmol/L (3-11); BUN 19 mg/dL (7-18); CO2 29.6 mmol/L (21.0-32.0); CREATININE 1.6 mg/dL (0.55-1.02); Calcium 8.6 mg/dL (8.5-10.1); Chloride 102 mmol/L (98-107); Estimated GFR 37.85 (mL/min/1.73m2); Glucose 111 mg/dL (74-106); Sodium 140 mmol/L (136-145); Total Protein 7.5 g/dL (6.4-8.2)
[2024-05-01] MEDS: Normal Saline 500 ML 1000 ML IV (11:40)
[2024-05-01 11:48] LABS: COVID-19 PCR Negative (Negative); Influenza A PCR Negative (Negative); Influenza B PCR Negative (Negative); RSV PCR Negative (Negative)
[2024-05-01 11:49] LABS: Source Nasopharynx
--- NOTE | 2024-05-01 11:56 | DI.RAD_ITS ---
Exam(s) XR CHEST 2V PA LATERAL EXAM: XR CHEST 2V PA LATERAL CLINICAL HISTORY: lethargy, ?PNA TECHNIQUE: 2D digital imaging was performed of the chest. Two images were obtained. PA and lateral views were obtained. COMPARISON: CR XR RIBS RT W PA LAT CHEST from 12/14/2022 FINDINGS: The lateral view is limited secondary to overlying left humerus. MEDIASTINUM: Normal. HEART: Normal. PULMONARY VASCULATURE: Normal. LUNGS: Clear. PLEURAL SPACE: No pleural effusion or pneumothorax. Pleural calcifications are again seen in the left hemithorax. BONE:Within normal limits for the patient's age. There are old healed left rib fractures again seen. There is inferior subluxation of the left humeral head relative to the glenoid. OTHER FINDINGS:Normal. IMPRESSION: 1. No acute pulmonary findings. 2. Inferior subluxation of the left humeral head relative to the glenoid. DATA REPOSITORY: RADIATION DOSE DELIVERED:
[2024-05-01] MEDS: ELECTROLYTE-R SOLUTION 1,000 ML 500 ML IV (12:10)
[2024-05-01 12:51] LABS: Troponin I 6 ng/L (<or=51)
[2024-05-01] MEDS: Potassium Bicarbonate/Cit AC 25 MEQ TABLET.EFF 50 MEQ PO (12:58)
[2024-05-01 13:15] LABS: Troponin I 5 ng/L (<or=51)
[2024-05-01 13:37] LABS: Bilirubin Negative (Negative); Blood Negative (Negative); Clarity Sl Cloudy (Clear); Glucose Negative (Negative); Ketones Negative (Negative); Leukocyte Esterase Trace (Negative); Nitrite Negative (Negative); Specific Gravity <= 1.005 (1.005-1.025); Urobilinogen 0.2 mg/dL (Up to 0.2)
[2024-05-01 13:45] LABS: Bacteria Few HPF (Negative); Epithelial Cells Many HPF (Negative); RBC 0-2 HPF (0-2)
[2024-05-01 13:46] LABS: C & S Indicated? No; Casts Negative LPF (Negative); Crystals Negative HPF (Negative); Mucus Trace (Negative)
--- NOTE | 2024-05-01 14:12 | W.PC.ACHO ---
Registration Status: Primary Language: Preferred Language: ED Information & Data Chief Complaint AMS/LOC 05/01/24 11:14 Triage Note patient was brought in by 05/01/24 10:51 [facility] with AMS with slower than normal speech according and her sister, and EMS. Ems reported that patient speech improved while in the ambulance. Patient has baseline hemiparesis due to previous stroke Medical / Surgical History (Last Reviewed 04/16/23 @ 13:46 by Marisa Ortega NP) Elbow fracture, right Most Recent Vital Signs Temperature 36.8 C 05/01/24 14:04 Temperature Source Oral 05/01/24 10:51 Pulse 56 L 05/01/24 14:04 Pulse 57 L 05/01/24 14:00 Respiratory Rate 19 05/01/24 14:04 Respiratory Effort Normal 05/01/24 11:16 Respiratory Depth Normal 05/01/24 11:16 Respiratory Pattern Normal 05/01/24 11:16 Blood Pressure 125/71 05/01/24 14:04 Blood Pressure Mean 86 05/01/24 14:00 Pulse Oximetry 92 05/01/24 14:04 Pain Level 0 05/01/24 11:23 Allergies atenolol Adverse Reaction (Verified 03/25/24 09:18) h/a's gold Au 198 Adverse Reaction (Verified 03/25/24 09:18) dermatitis also surgical steel Precautions Isolation Standard precaution 05/01/24 11:00 Active Medications Generic Name Dose Route Start Last Admin Trade Name Freq PRN Reason Stop Dose Admin Iohexol 70 ml 05/01/24 11:30 05/01/24 11:23 Omnipaque 350 Mg/Ml 500 Ml Btl-Imaging Package IJ 05/31/24 23:59 70 ml DIRECTED ELIAS Administration Sodium Chloride 50 ml 05/01/24 11:30 05/01/24 11:22 Normal Saline - Diluent 50 Ml Vial IJ 50 ml .FOR DI USE ELIAS Administration IV IV Catheter Type [Right Hand] Peripheral IV IV Catheter Gauge [Right Hand] 20 IV Catheter Gauge [Right 20 Antecubital] Diet Orders Category Date Time Status Heart Healthy Eating [DIET] Nutrition 05/01/24 Lunch Active Diagnostics 05/01/24 05/01/24 05/01/24 Range/Units 13:30 12:54 11:12 WBC 8.70 (4.4-10.8) 10^3/uL RBC 4.78 (3.93-5.22) 10^6/uL Hgb 14.8 (11.2-15.7) g/dL Hct 42.6 (36.0-46.0) % MCV 89 (80-95) fL MCH 31.0 (27.0-33.0) pg MCHC 34.7 (32.0-36.0) % RDW 12.4 (11.7-14.6) % Plt Count 282 (130-400) 10^3/uL MPV 11.8 H (8.0-11.0) fL Immature Gran % 0.3 % Neutrophils % 69.4 % Lymphocytes % 18.4 % Monocytes % 7.6 % Eosinophils % 3.6 % Basophils % 0.7 % Nucleated RBC % 0.0 (0.0-0.3) % Absolute Neutrophils 6.04 (1.2-6.7) 10^3/uL Absolute Lymphocytes 1.60 (1.2-3.4) 10^3/uL Absolute Monocytes 0.66 (0.1-0.8) 10^3/uL Absolute Eosinophils 0.31 (0.0-0.7) 10^3/uL Absolute Basophils 0.06 (0.0-0.2) 10^3/uL Sodium 140 (136-145) mmol/L Potassium 3.0 L (3.5-5.1) mmol/L Chloride 102 (98-107) mmol/L Carbon Dioxide 29.6 (21.0-32.0) mmol/L Anion Gap 8.4 (3-11) mmol/L BUN 19 H (7-18) mg/dL Creatinine 1.6 H (0.55-1.02) mg/dL Est GFR (CKD-EPI 2020) 37.85 (mL/min/1.73m2) Glucose 111 H (74-106) mg/dL Calcium 8.6 (8.5-10.1) mg/dL Magnesium 2.0 (1.8-2.4) mg/dL Total Bilirubin 0.70 (0.2-1.0) mg/dL AST 24 (15-37) U/L ALT 44 (14-59) U/L Alkaline Phosphatase 116 (46-116) U/L Troponin I 5 6 (<or=51) ng/L Total Protein 7.5 (6.4-8.2) g/dL Albumin 3.4 (3.4-5.0) g/dL Urine Color Yellow (Yellow) Urine Clarity Sl Cloudy (Clear) Urine pH 6.0 (5-8) Ur Specific [place] <= 1.005 (1.005-1.025) Urine Protein Negative (Neg-Trace) mg/dL Urine Ketones Negative (Negative) mg/dL Urine Blood Negative (Negative) Urine Nitrite Negative (Negative) Urine Bilirubin Negative (Negative) Urine Urobilinogen 0.2 (Up to 0.2) mg/dL Ur Leukocyte Esterase Trace H (Negative) Urine RBC 0-2 (0-2) HPF Urine WBC 3-5 (0-5) HPF Ur Epithelial Cells Many (Negative) HPF Urine Crystals Negative (Negative) HPF Urine Bacteria Few (Negative) HPF Urine Casts Negative (Negative) LPF Urine Mucus Trace (Negative) Ur Culture Indicated? No Urine Glucose Negative (Negative) mg/dL COVID-19 Source SARS-CoV-2 (PCR) (Negative) Influenza Type A (PCR) (Negative) Influenza Type B (PCR) (Negative) RSV (PCR) (Negative) 05/01/24 Range/Units 11:06 WBC (4.4-10.8) 10^3/uL RBC (3.93-5.22) 10^6/uL Hgb (11.2-15.7) g/dL Hct (36.0-46.0) % MCV (80-95) fL MCH (27.0-33.0) pg MCHC (32.0-36.0) % RDW (11.7-14.6) % Plt Count (130-400) 10^3/uL MPV (8.0-11.0) fL Immature Gran % % Neutrophils % % Lymphocytes % % Monocytes % % Eosinophils % % Basophils % % Nucleated RBC % (0.0-0.3) % Absolute Neutrophils (1.2-6.7) 10^3/uL Absolute Lymphocytes (1.2-3.4) 10^3/uL Absolute Monocytes (0.1-0.8) 10^3/uL Absolute Eosinophils (0.0-0.7) 10^3/uL Absolute Basophils (0.0-0.2) 10^3/uL Sodium (136-145) mmol/L Potassium (3.5-5.1) mmol/L Chloride (98-107) mmol/L Carbon Dioxide (21.0-32.0) mmol/L Anion Gap (3-11) mmol/L BUN (7-18) mg/dL Creatinine (0.55-1.02) mg/dL Est GFR (CKD-EPI 2020) (mL/min/1.73m2) Glucose (74-106) mg/dL Calcium (8.5-10.1) mg/dL Magnesium (1.8-2.4) mg/dL Total Bilirubin (0.2-1.0) mg/dL AST (15-37) U/L ALT (14-59) U/L Alkaline Phosphatase (46-116) U/L Troponin I (<or=51) ng/L Total Protein (6.4-8.2) g/dL Albumin (3.4-5.0) g/dL Urine Color (Yellow) Urine Clarity (Clear) Urine pH (5-8) Ur Specific [place] (1.005-1.025) Urine Protein (Neg-Trace) mg/dL Urine Ketones (Negative) mg/dL Urine Blood (Negative) Urine Nitrite (Negative) Urine Bilirubin (Negative) Urine Urobilinogen (Up to 0.2) mg/dL Ur Leukocyte Esterase (Negative) Urine RBC (0-2) HPF Urine WBC (0-5) HPF Ur Epithelial Cells (Negative) HPF Urine Crystals (Negative) HPF Urine Bacteria (Negative) HPF Urine Casts (Negative) LPF Urine Mucus (Negative) Ur Culture Indicated? Urine Glucose (Negative) mg/dL COVID-19 Source Nasopharynx SARS-CoV-2 (PCR) Negative (Negative) Influenza Type A (PCR) Negative (Negative) Influenza Type B (PCR) Negative (Negative) RSV (PCR) Negative (Negative) Intake and Output - 24 Hour Total 05/01/24 10:41 thru 05/01/24 10:51 Weight 101.151 kg Falls Risk Assessment History of Falls Previous History 05/01/24 11:24 Contributing Factors Impairments 05/01/24 11:24 Ambulatory Aids Uses ambulatory device 05/01/24 11:24 Tubes/Lines W/no contributing factors 05/01/24 11:24 Gait Evaluation W/no contributing factors 05/01/24 11:24 Cognition No cognitive impairment 11/27/24 11:24 Fall Total Score 53 05/01/24 11:24 Level of Risk High Risk 05/01/24 11:24 Problems (Last Reviewed 04/16/23 @ 13:46 by Marisa Ortega NP) Hypokalemia (Acute) DANIEL (acute kidney injury) (Acute) v v v v v v v v v Sending and/or Receiving Nurses: Please use comment section below to note any information pertinent to the patient hand-off not included above. Information / Comments: Woke not feeling well, may have taken extra BP med (Losartan). Was originally hypotensive, after IVF's her BP WNL, 125/70. Oral K replacement. Minor dehydration. Report received from: Kimberly LIND/ER
--- NOTE | 2024-05-01 15:05 | PHA.REVIEW2 ---
Pharmacy Admission Review Admission Clinical Review Admission Pharmacy Review: Hypokalemia (Acute) DANIEL (acute kidney injury) (Acute) atenolol Adverse Reaction (Verified 03/25/24 09:18) h/a's gold Au 198 Adverse Reaction (Verified 03/25/24 09:18) dermatitis Resuscitation Status Full Code Height 5 ft 4 in Weight 101.151 kg Pharmacy Admission Review Renal Dosing Renal Dosing: BUN 19 mg/dL (7-18) H 05/01/24 11:12 Creatinine 1.6 mg/dL (0.55-1.02) H 05/01/24 11:12 Medications needing adjustments: Reviewed (CrCl 45.96 mL/min) List of meds needing interventions: Current medications are okay Anticoagulation Anticoagulation: Hgb 14.8 g/dL (11.2-15.7) 05/01/24 11:12 Hct 42.6 % (36.0-46.0) 05/01/24 11:12 Plt Count 282 10^3/uL (130-400) 05/01/24 11:12 Creatinine 1.6 mg/dL (0.55-1.02) H 05/01/24 11:12 DVT Prophylaxis: Intervened (called nursing to put in height for patient) Medications: Enoxaparin (40mg daily) Relevant Labs Relevant Labs: Sodium 140 mmol/L (136-145) 05/01/24 11:12 Potassium 3.0 mmol/L (3.5-5.1) L 05/01/24 11:12 Chloride 102 mmol/L (98-107) 05/01/24 11:12 Magnesium 2.0 mg/dL (1.8-2.4) 05/01/24 11:12 Electrolytes, C-Reactive P, ESR: Reviewed (K 3 - has order for 20mEq PO daily) Cardiac Review Cardiac Review: Troponin I 5 ng/L (<or=51) 05/01/24 12:54 Blood Pressure 102/65 1419 Blood Pressure 125/71 1404 Blood Pressure 125/71 1400 Blood Pressure 119/72 1346 Blood Pressure 102/61 1301 Blood Pressure 107/68 1246 Blood Pressure 99/71 1230 Blood Pressure 108/68 1215 Blood Pressure 97/54 1200 Blood Pressure 94/51 1123 Blood Pressure 89/48 1116 Blood Pressure 85/49 1101 Blood Pressure 94/51 1058 Blood Pressure 94/51 1051 BP, HR, EF%: Reviewed (HR WNL) QTc Review QTc: Reviewed (475 from 05/01/24) IV to PO Switch IV Medications: Reviewed Home Meds Home Med List reviewed: Reviewed Relevent Home Meds Not ordered & why?: diclofenac, HCTZ (on hold - hypotension), losartan (on hold - hypotension), meloxicam (PRN) and metoprolol (on hold - hypotension) Current Meds Current Medication Order Review: Intervened Comments: Changed timing of pantoprazole from 0830 to 0730 per pharmacy protocol
--- NOTE | 2024-05-01 15:40 | PT.INIE ---
PT Notes Visit Reasons: DANIEL, AMS, hypotension Physical Therapy Inpatient Initial Evaluation Date: 05/01/2024 Referring Doctor: Annita Tong NP PT Orders: PT CONSULT: Safety consult for DC Precautions: Fall. Standard. L-sided hemiparesis from previous CVA. AFO on the L foot with ambulation. Patient Profile/Admitting Diagnosis: Thao is a 53-year-old female with past medical history significant for right thymic stroke with left-sided hemiparesis admitted to the ED early today due to slurring of speech, altered mental status, decreased blood pressure, and fatigue. Per chart review patient reportedly has had 2 doses of Losartan which may have caused her symptoms. Patient is being admitted for continued monitoring and management of acute kidney injury, hypertension, and hypokalemia. PMHX: All Active Problems (Updated 05/01/24 @ 14:12 by DIANE SCHREIBER) Hypokalemia (Acute) DANIEL (acute kidney injury) (Acute) Weakness (Acute) Elevated LFTs (Acute) Disordered sleep (Acute) Low back pain (Acute) Foot contusion (Acute) actually rednessLeft foot drop (Acute) Able to mobilize using indoor motorized wheelchair (Acute) Ankle pain (Acute) Memory changes (Chronic) Left arm weakness (Acute) Contusion of bone (Acute) Left kneeLeft knee injury (Acute) Chronic migraine (Acute) Hypertension (Chronic) Right thalamic stroke (Chronic) Medical History Elbow fracture, right Social History/Home Situation: Has daiy caregivers for 2-4 hours per day. Caregivers prepare meals and do grocery shopping with patient. Occasionally, patient is able to use her motorized wheelchair to go to the grocery store. Able to take about 10 steps using her hemiwalker at home but prefers to use her wheelchair as her main mode of mobility indoors. Has a ramp to enter. No stairs. Equipment Owned/DME: Motorized wheelchair, regular wheelchair, hemiwalker, tub bench, Subjective: States that she is well aware of her environment and current happenings as of right now. No longer confused. Bothered by IV site on R antecubital fossa. Objective: General Observation: Being assisted by nursing staff with use of bedside commode. Left UE flexion synergy noted. Mental Status: Alert and oriented as to person, place, time, and purpose. Able to pay attention, focus, and respond appropriately. Pain: None reported Vital Signs: Closely monitored by nursing staff ROM: Right Upper Extremity: Shoulder Flexion WFL. Shoulder abduction WFL. Elbow flexion WFL. Wrist flexion WFL. Functional opening and closing of hand WFL. Left Upper Extremity: Shoulder Flexion allows only about 10 degrees of movement due to hemiparesis. Shoulder abduction allows only about 10 degrees of movement due to hemiparesis. Elbow flexion absent. Wrist flexion absent. Functional opening and closing of hand absent. Right Lower Extremity: Hip flexion WFL. Hip abduction WFL. Knee flexion WFL. Ankle dorsiflexion WFL. Ankle plantarflexion WFL. Left Lower Extremity: Hip flexion allows up to 90 degrees. Hip abduction WFL. Knee flexion 40 degrees to 90 degrees. Ankle dorsiflexion absent. Ankle plantarflexion 10 degrees. Strength: Right Upper Extremity: Shoulder flexors 4/5. Shoulder abductors 4/5. Elbow flexors 5/5. Elbow extensors 5/5. Commodity Management Specialist strong. Left Upper Extremity: Shoulder flexors 1+/5. Shoulder abductors 1+/5. Elbow flexors 1/5. Elbow extensors 1/5. Commodity Management Specialist absent. Right Lower Extremity: Hip flexors 4/5. Hip abductors 4/5. Knee flexors 5/5. Knee extensors 4/5. Ankle dorsiflexors 4/5. Ankle plantarflexors 4/5. Left Lower Extremity: Hip flexors 3-/5. Hip abductors 3-/5. Knee flexors 3-/5. Knee extensors 3-/5. Ankle dorsiflexors 0/5. Ankle plantarflexors 1/5. Bed Mobility/Transfers: Minimal cueing provided for use of B hands as needed for support, movement sequence, AD management, and posture to reduce fall risk and minimize pain report Supine to sit minimal assist with HOB at 30 degrees Sit to stand minimal assist with hemiwalker Stand to sit minimal assist with hemiwalker Bed to bedside commode minimal assist with hemiwalker Bedside commode to bed minimal assist with hemiwalker Bed to reclining chair minimal assist with hemiwalker Gait: Facilitate safe and correct performance of short in room ambulation of about 8 steps from bedside to bedside recliner using hemiwalker on the right side with minimal assist of PT and minimal verbal cueing for AD management, posture, and weight distribution. Balance: Static Sitting: Good Dynamic Sitting: Fair Static Standing: Fair Dynamic Standing: Fair Special Tests: Mobility Limitations Standardized Measure [facility] AM-PAC 6 clicks Basic Mobility Inpatient Short Form: Raw Score: 18 CMS Score: 47% deficit Informed Consent/Education: Patient was instructed in purpose of PT consult and plan of care. Agreeable to proceed with established PT POC to achieve personal goals. Assessment: Residual L-sided hemiparesis from previous R thymic stroke. requires use of AFO on L for longer ambulation of up to 15 steps using hemiwalker. Patient presents with clinical signs and symptoms consistent with current/admitting diagnoses that have resulted to mobility limitations, gait instability, generalized weakness, and overall ADL decline as demonstrated by the following impairment level findings: 1. L-sided Manohar Pettit MD hemiparesis from previous R thymic CVA 2. Impaired sitting/standing balance 3. Impaired activity tolerance 4. Abnormal residual flexor synergy on L UE Impairments are contributing to the following functional limitations: 1. Decline in bed mobility skills 2. Decline in transfer skills 3. Difficulty with ambulation without assistive device and physical assistance 4. Increased completion time for mobility ADL performance 5. Increased risk for falls Patient is assessed as a [id number] moderate complexity based on the following: History: [id number] with past medical history as indicated above Examination: Demonstrable impairment in strength, balance, and mobility level with underlying impairments and functional limitations as exhibited above as well as deficit score of 47% utilizing the Health system Mobility Inpatient Short Form Presentation: Evolving Decision Makin moderate complexity Goals: Goals X1 week 1. Supine-Sit independent 2. Sit-Supine independent 3. Sit-Stand independent 4. Stand-Sit independent with hemiwalker on R 5. Bed-Chair independent with hemiwalker on R 6. Chair-Bed independent with hemiwalker on R 7. Independent gait on level surface with use ofhemiwalker on R for at least 30 feet without report of pain nor dyspnea 8. Good static and dynamic standing balance/tolerance Plan of Care/Treatment Plan: 1-2x/day, 7 days/week x 1 week. Plan of care has been reviewed with the TECHNICAL HEALTHCARE CONSULTANT providing the service under Physical Therapy direction. Initiate Physical Therapy intervention for pain management as needed, strengthening, bed mobility, transfers, gait, stairs, balance training, and use of assistive device. DISCHARGE RECOMMENDATIONS: [] Home with no services [] [X] Home with services. Patient will benefit from home health PT services in order to progress mobility level using least restrictive assistive ambulatory device, assess home safety, identify additional equipment needs, and establish a functional maintenance program that will increase ability of patient to remain at home. [] Home with outpatient PT [] [] SNF for continued rehabilitation [] [] [facility] T[facility] [] [] SNF versus LTC based on ability to participate and progress [] TREATMENT CODE/TIME: 72903 x 20 minutes for 1 unit, 39565 time 50 minutes for 1 unit (15: 40?16: 15). Thank you for the opportunity to participate in the care of this patient. Vianca Tapia PT, DPT, CLT [facility] [place], [place]
--- NOTE | 2024-05-01 15:57 | HPE_ITS ---
Date of service: 05/01/24 Time of Service: 12:48 Assessment and Plan Assessment and plan (1) DANIEL (acute kidney injury): Status: Acute Assessment and plan: Most likely pre-renal Cr 1.6 from 0.8 bseline Will continue IV fluids with LR at 100 cc an hour?no a coagulable and no previous report of heart failure Will hold nephrotoxic medicine such as ARB's and NSAIDs (2) Hypertension: Status: Chronic Assessment and plan: Patient was on metoprolol CR 400 mg daily Convert to metoprolol tartrate with parameters but will give reduced dose due to concern regarding taking a double dose of losartan this morning Vital signs every 4 (3) Hypokalemia: Status: Acute Assessment and plan: Supplementation ordered BMP in the morning Discussed with Dr. Ramirez History of Present Illness History of Present Illness Chief Complaint: Fatigue, altered mental status N arrative: This 53-year-old female patient with a past medical history of right thymic stroke with left hemiparesis, hypertension, and elevated LFTs presented to the emergency room at [facility] via EMS for evaluation of fatigue, altered mental status with slurred speech. Upon arrival to the ED symptoms of slurred speech and altered mental status and resolved but the patient remained hypotensive with SBP in the 80s without tachycardia or tachypnea. The patient denied fever, chills, headache, tingling, numbness, vision changes, dizziness, congestion, sore throat, ear pain, cough, chest pain, shortness of breath, nausea, vomiting, abdominal pain, diarrhea, constipation, hematochezia or melena, and dysuria. Patient denied any ill contacts. The patient reported that she might have doubled her dose of losartan this morning by accident. The workup in the ED was significant for negative head CT and CTA. EKG showed normal sinus rhythm heart rate 64 without signs of acute ischemia or injuries. Chemistry was remarkable for potassium at 3.0, creatinine at 1.6 from baseline 0.8. The patient was treated with IV fluid and potassium supplementation in the ED. Hospitalist was consulted and the patient admitted to the medical surgical floor for acute kidney injury, hypokalemia, hypotension. When seen in room, patient confirmed full CODE STATUS. Patient mention that the only symptom that she had this morning was feeling of tiredness and weakness in her voice. The patient denied weakness, dizziness, change in vision, chest pain, nausea, vomiting, diarrhea or dysuria. The patient denied any previous history of atrial fibrillation or heart failure. The patient reported ongoing left hemiparesis status post stroke evidenced by left leg and left arm weakness and inability of left foot to move. Patient reported not taking aspirin or Plavix. Also reporting living alone with her dog. Review of Systems All systems reviewed & are unremarkable except as noted in HPI and below PFSH All Active Problems (Updated 05/01/24 @ 14:12 by DIANE SCHREIBER) Hypokalemia (Acute) DANIEL (acute kidney injury) (Acute) Weakness (Acute) Elevated LFTs (Acute) Disordered sleep (Acute) Low back pain (Acute) Foot contusion (Acute) actually redness Left foot drop (Acute) Able to mobilize using indoor motorized wheelchair (Acute) Ankle pain (Acute) Memory changes (Chronic) Left arm weakness (Acute) Contusion of bone (Acute) Left knee Left knee injury (Acute) Chronic migraine (Acute) Hypertension (Chronic) Right thalamic stroke (Chronic) Medical History Elbow fracture, right Social History (Updated 05/12/23 @ 14:21 by Grace Ohara) Smoking/Tobacco Use Status: Never Second Hand Exposure: Yes Smoking risk assessment performed?: Yes Alcohol Intake: current Alcohol Intake frequency: a few times a week Alcohol type: hard liquor and other Drug use: Socially Substance use type: does not use Current gender identity: female Additional Social history: Social history unknown. Meds Allergies and Home Medications Allergies Allergy/AdvReac Type Severity Reaction Status Date / Time atenolol AdvReac h/a's Verified 03/25/24 09:18 gold Au 198 AdvReac dermatitis Verified 03/25/24 09:18 Home Medications ?Medication ?Instructions ?Recorded ?Confirmed ?Type diclofenac potassium 50 mg tablet 50 mg PO BID #20 tabs 12/13/22 05/01/24 Rx E stim #1 ea 02/20/23 05/01/24 Rx meloxicam 15 mg tablet 15 mg PO DAILY PRN left knee pain 02/20/23 05/01/24 Rx #90 tabs atorvastatin 40 mg tablet 40 mg PO QPM #90 tabs 09/07/23 05/01/24 Rx duloxetine 30 mg capsule,delayed 30 mg PO QDAY #90 caps 01/01/24 05/01/24 Rx release duloxetine 60 mg capsule,delayed 60 mg PO DAILY #90 caps 01/01/24 05/01/24 Rx release cyanocobalamin (vitamin B-12) 1,000 mcg PO DAILY #90 tabs 02/24/24 05/01/24 Rx 1,000 mcg tablet doxazosin 1 mg tablet 2 mg (2 x 1 mg) PO QHS #180 tabs 02/24/24 05/01/24 Rx hydrochlorothiazide 25 mg tablet 25 mg PO QAM #90 tabs 02/24/24 05/01/24 Rx melatonin 5 mg capsule 5 mg PO HS #90 caps 02/24/24 05/01/24 Rx metoprolol succinate 200 mg 200 mg PO BID #180 tabs 02/24/24 05/01/24 Rx tablet,extended release 24 hr multivitamin with minerals 1 cap PO DAILY #90 caps 02/24/24 05/01/24 Rx pantoprazole 20 mg tablet,delayed 20 mg PO DAILY #90 tabs 02/24/24 05/01/24 Rx release baclofen 5 mg tablet 5 mg PO BID #180 tabs 03/13/24 05/01/24 Rx potassium chloride 10 mEq 20 meq (2 x 10 mEq) PO DAILY #180 03/25/24 05/01/24 Rx tablet,extended release tabs pregabalin 50 mg capsule (Lyrica) 50 mg PO TID #90 caps 03/25/24 05/01/24 Rx diclofenac sodium 1 % topical gel 2 g topical QID #100 grams 04/08/24 05/01/24 Rx mirabegron 50 mg tablet,extended 50 mg PO DAILY #90 tabs 04/08/24 05/01/24 Rx release 24 hr losartan 100 mg tablet 100 mg PO DAILY #90 tabs 04/24/24 05/01/24 Rx Exam Narrative Exam Narrative: Constitutional The patient is sitting in chaircomfortable HENMT: Head is atraumatic, normocephalic, no lymphadenopathy. Facial structures with normal appearance Eyes: Well aligned, intact ROM Neuro:alert and oriented to self, person, place, time and situation. No new neurological focal deficit, residual left sided weakness Chest:Chest is symmetrical and normal appearance Resp: Normal respiratory pattern, speaks in full sentences, unlabored breathing, clear lung bilaterally Cardio: regular rhythm, S1, S2, no murmur,bilateral radial and dorsalis pedis pulses are positive, palpable GI: Abdomen is not distended, soft and non tender, bowel sounds are present : Negative Costovertebral angle tenderness Back/spine/Pelvis: No back tenderness, normal alignment Integumentary: No skin lesions or rash Extremities: strength 5/5 to right limbs , 3-4/5 to left limbs Psych: RASS 0, congruent mood and normal affect. Results Labs 05/01/24 11:12 05/01/24 11:12 Labs: Laboratory Results - last 24 hr 05/01/24 05/01/24 05/01/24 11:06 11:12 12:54 WBC 8.70 RBC 4.78 Hgb 14.8 Hct 42.6 MCV 89 MCH 31.0 MCHC 34.7 RDW 12.4 Plt Count 282 MPV 11.8 H Immature Gran % 0.3 Neutrophils % 69.4 Lymphocytes % 18.4 Monocytes % 7.6 Eosinophils % 3.6 Basophils % 0.7 Nucleated RBC % 0.0 Absolute Neutrophils 6.04 Absolute Lymphocytes 1.60 Absolute Monocytes 0.66 Absolute Eosinophils 0.31 Absolute Basophils 0.06 Sodium 140 Potassium 3.0 L Chloride 102 Carbon Dioxide 29.6 Anion Gap 8.4 BUN 19 H Creatinine 1.6 H Est GFR (CKD-EPI 2020) 37.85 Glucose 111 H Calcium 8.6 Magnesium 2.0 Total Bilirubin 0.70 AST 24 ALT 44 Alkaline Phosphatase 116 Troponin I 6 5 Total Protein 7.5 Albumin 3.4 Urine Color Urine Clarity Urine pH Ur Specific [place] Urine Protein Urine Ketones Urine Blood Urine Nitrite Urine Bilirubin Urine Urobilinogen Ur Leukocyte Esterase Urine RBC Urine WBC Ur Epithelial Cells Urine Crystals Urine Bacteria Urine Casts Urine Mucus Ur Culture Indicated? Urine Glucose COVID-19 Source Nasopharynx SARS-CoV-2 (PCR) Negative Influenza Type A (PCR) Negative Influenza Type B (PCR) Negative RSV (PCR) Negative 05/01/24 13:30 WBC RBC Hgb Hct MCV MCH MCHC RDW Plt Count MPV Immature Gran % Neutrophils % Lymphocytes % Monocytes % Eosinophils % Basophils % Nucleated RBC % Absolute Neutrophils Absolute Lymphocytes Absolute Monocytes Absolute Eosinophils Absolute Basophils Sodium Potassium Chloride Carbon Dioxide Anion Gap BUN Creatinine Est GFR (CKD-EPI 2020) Glucose Calcium Magnesium Total Bilirubin AST ALT Alkaline Phosphatase Troponin I Total Protein Albumin Urine Color Yellow Urine Clarity Sl Cloudy Urine pH 6.0 Ur Specific [place] <= 1.005 Urine Protein Negative Urine Ketones Negative Urine Blood Negative Urine Nitrite Negative Urine Bilirubin Negative Urine Urobilinogen 0.2 Ur Leukocyte Esterase Trace H Urine RBC 0-2 Urine WBC 3-5 Ur Epithelial Cells Many Urine Crystals Negative Urine Bacteria Few Urine Casts Negative Urine Mucus Trace Ur Culture Indicated? No Urine Glucose Negative COVID-19 Source SARS-CoV-2 (PCR) Influenza Type A (PCR) Influenza Type B (PCR) RSV (PCR) Last Vital Signs Temp 36.5 C 05/01/24 14:19 Pulse 63 05/01/24 14:19 Resp 18 05/01/24 14:19 BP 102/65 05/01/24 14:19 Pulse Ox 95 05/01/24 14:19 PAWSS Have you Been Recently Intoxicated or Drunk Within the Last 30 days?: No Have you Ever Experienced Previous Episodes of Alcohol Withdrawal?: No Have you ever Experienced Withdrawal Seizures?: No Have you ever Experienced Delirium Tremens(DT)s?: No Have you ever undergone Alcohol Rehabilitation Treatment (i.e, inpt ot outpatient treatment programs)?: No Have you ever Experienced Blackouts?: No Have you ever Combined Alcohol with other Downers within the last 90 days?: No Have you ever Combined Alcohol with any other Substance of Abuse during the last 90 days?: No Positive Blood Alcohol level on Presentation? [PCS.BAL]: No Evidence of Increased Autonomic Activity (i.e. HR>120, tremor, sweating, agitation, nausea)?: No Result: 0 Time Spent Time spent with Patient: >75 minutes Time was spent: preparing to see the patient(eg.review tests), obtaining and/or reviewing separately otained hiistory, ordering medications,tests, procedures, referring, communicating with other health landcare facilitator, indepentently interpreting results, counseling the patient and care coordination
[2024-05-01] MEDS: Pregabalin 50 MG CAP PO ×2 (16:07→19:50)
[2024-05-01] MEDS: Lactated Ringers 1,000 ML 100 ML IV (16:42)
[2024-05-01] MEDS: Enoxaparin 40 MG/0.4 ML SYR SC (18:36)
[2024-05-01] MEDS: Diclofenac 1% Gel 100 GM TUBE TP (18:37)
[2024-05-01] MEDS: Metoprolol 50 MG TAB PO (18:42)
[2024-05-01] MEDS: Baclofen 10 MG TAB 5 MG PO (19:49)
[2024-05-01] MEDS: Doxazosin 2 MG TAB PO (19:49)
[2024-05-01] MEDS: Melatonin 3 MG TAB 6 MG PO (19:49)
[2024-05-01] MEDS: Atorvastatin 40 MG TAB PO (19:50)
[2024-05-01] MEDS: DULoxetine 30 MG CAP PO (19:50)
[2024-05-01] MEDS: Potassium Chloride 20 MEQ TABCR PO (20:04)
--- NOTE | 2024-05-01 23:51 | NUR.NOTE ---
Nursing Note: Chart review completed by ALTA on 05/01/24.
[2024-05-02 00:25] VITALS: BP 111/65; PULSE 64; RESP 14; O2SAT 92
[2024-05-02] MEDS: Metoprolol 50 MG TAB PO ×2 (00:26→05:56)
[2024-05-02] MEDS: Lactated Ringers 1,000 ML 100 ML IV (02:36)
[2024-05-02 02:51] VITALS: BP 116/56; PULSE 65; RESP 17; TEMP 36.6; O2SAT 90
[2024-05-02 06:38] LABS: Abs Immature Grans 0.02 10^3/uL (0.0-0.06); Absolute Basophil Count 0.05 10^3/uL (0.0-0.2); Absolute Lymphocyte Count 2.28 10^3/uL (1.2-3.4); Absolute Monocyte Count 0.56 10^3/uL (0.1-0.8); Absolute Neutrophil Count 5.76 10^3/uL (1.2-6.7); Basophils % 0.6 %; Eosinophils % 4.4 %; HCT 40.2 % (36.0-46.0); HGB 13.8 g/dL (11.2-15.7); Immature Grans % 0.2 %; Lymphocytes % 25.1 %; MCH 30.4 pg (27.0-33.0); MCHC 34.3 % (32.0-36.0); MCV 89 fL (80-95); MPV 12.1 fL (8.0-11.0); Monocytes % 6.2 %; Neutrophils % 63.5 %; Platelet Count 260 10^3/uL (130-400); RBC 4.54 10^6/uL (3.93-5.22); RDW 12.3 % (11.7-14.6); RDW-SD 39.8 fL; WBC 9.07 10^3/uL (4.4-10.8)
[2024-05-02 06:53] LABS: Anion Gap 8.5 mmol/L (3-11); BUN 14 mg/dL (7-18); CO2 32.5 mmol/L (21.0-32.0); CREATININE 1.1 mg/dL (0.55-1.02); Calcium 8.5 mg/dL (8.5-10.1); Chloride 103 mmol/L (98-107); Estimated GFR 59.34 (mL/min/1.73m2); Glucose 115 mg/dL (74-106); Sodium 144 mmol/L (136-145)
[2024-05-02 07:34] VITALS: BP 139/98; PULSE 64; RESP 19; TEMP 35.9; O2SAT 91
[2024-05-02] MEDS: Potassium Chloride 20 MEQ TABCR 40 MEQ PO (07:56)
--- NOTE | 2024-05-02 09:16 | DSE_ITS ---
Date of service: 05/02/24 Time of Service: 09:16 DS: Diagnosis Discharge Diagnosis (1) DANIEL (acute kidney injury): Status: Acute (2) Hypertension: Status: Chronic (3) Hypokalemia: Status: Acute Discharge Plan Disposition Patient Disposition: Home W/Home Health Services Condition: Improving Discharge Details Reason For Visit: DANIEL, AMS, hypotension Admit Date/Time: 05/01/24 12:48 Admit Provider: Matias Ramirez Attending Provider: Matias Ramirez Primary Care Provider: Conchis Light [facility] Hospital Course: This 53-year-old female patient with a past medical history of right thymic stroke with left hemiparesis, hypertension, and elevated LFTs presented to the emergency room at [facility] via EMS for evaluation of fatigue, altered mental status with slurred speech. Upon arrival to the ED symptoms of slurred speech and al tered mental status and resolved but the patient remained hypotensive with SBP in the 80s without tachycardia or tachypnea.. Patient denied any ill contacts. The patient reported that she might have doubled her dose of losartan this morning by accident. The workup in the ED was significant for negative head CT and CTA. EKG showed normal sinus rhythm heart rate 64 without signs of acute ischemia or injuries. Chemistry was remarkable for potassium at 3.0, creatinine at 1.6 from baseline 0.8. The patient was treated with IV fluid and potassium supplementation in the ED. Hospitalist was consulted and the patient admitted to the medical surgical floor for acute kidney injury, hypokalemia, hypotension. When seen in room, patient confirmed full CODE STATUS. Patient mention that the only symptom that she had this morning was feeling of tiredness and weakness in her voice. The patient denied weakness, dizziness, change in vision, chest pain, nausea, vomiting, diarrhea or dysuria. The patient denied any previous history of atrial fibrillation or heart failure. The patient reported ongoing left hemiparesis status-post stroke evidenced by left leg and left arm weakness, left hand paralysis and inability move her left foot. During the stay, the patient continue to receive IVF and potassium supplementation. Losartan was held and metoprolol succinate converted to a lower dose of metoprolol tartrate. Blood pressure trended up and the patient's clincal picture improved with Cr down to 1.1. Hypokalemia has resolved. The patient will be discharged home and will resume her home medicine regimen; Losartan to be resumed on . The patient should hold off oral NSAIDs until discussed with PCP during follow-up appointment. Physical recommendation for home health physical therapy. The patient would benefit from home health nursing to assist in compliance with change in home medicines; the patient should avoid enteral NSAIDS and take her home medicines as prescribed. Discussed with Dr. Ramirez Home Meds and New Rx's Prescriptions: New acetaminophen 500 mg capsule 1,000 mg PO Q6H PRNQty: 40 0RF Continued potassium chloride 10 mEq tablet extended release 20 meq PO DAILY Qty: 180 4RF pregabalin [Lyrica] 50 mg capsule 50 mg PO TID Qty: 90 5RF (DME) E stim See Rx Instructions .Route .MEDSUPPLY Qty: 1 0RF Rx Instructions: For neuromuscular re-education following her thalamic stroke atorvastatin 40 mg tablet 40 mg PO QPM Qty: 90 4RF duloxetine 30 mg capsule,delayed release(DR/EC) 30 mg PO QDAY Qty: 90 4RF Rx Instructions: take in PM duloxetine 60 mg capsule,delayed release(DR/EC) 60 mg PO DAILY Qty: 90 4RF Rx Instructions: take in AM metoprolol succinate 200 mg tablet extended release 24 hr 200 mg PO BID Qty: 180 3RF Rx Instructions: mid to late afternoon take BP and if less than 90/60, hold the evening dose hydrochlorothiazide 25 mg tablet 25 mg PO QAM Qty: 90 4RF doxazosin 1 mg tablet 2 mg PO QHS Qty: 180 4RF pantoprazole 20 mg tablet,delayed release (DR/EC) 20 mg PO DAILY Qty: 90 4RF cyanocobalamin (vitamin B-12) 1,000 mcg tablet 1,000 mcg PO DAILY Qty: 90 4RF melatonin 5 mg capsule 5 mg PO HS Qty: 90 4RF multivitamin with minerals Capsule 1 cap PO DAILY Qty: 90 4RF baclofen 5 mg tablet 5 mg PO BID Qty: 180 3RF diclofenac sodium 1 % gel 2 g topical QID Qty: 100 3RF Rx Instructions: apply to single elbow, wrist or hand; for hand includes palm/fingers/back of hand mirabegron 50 mg tablet extended release 24 hr 50 mg PO DAILY Qty: 90 4RF losartan 100 mg tablet 100 mg PO DAILY Qty: 90 6RF Held diclofenac potassium 50 mg tablet 50 mg PO BID Qty: 20 0RF Hold Instructions: Resume on 05/30/24. Discuss with your PCP please Rx Instructions: Take with food, do not take any [id number] anti-inflammatories with this. meloxicam 15 mg tablet 15 mg PO DAILY PRN (Reason: left knee pain) Qty: 90 0RF Hold Instructions: Resume on 05/30/24. Discuss with your PCP please Rx Instructions: use sparingly as it can increase blood pressure Discharge Instructions Referrals: Conchis Light MD, [place] [Primary Care Provider] - (Follow- up with PCP within 7 days of discharge please) Activity:: Activity as Tolerated Equipment/Supplies:: Walker Diet:: heart healthy Discharge Orders Discharge Orders: Discharge Order (Routine); Ordered 05/02/24 Ordered By: Annita Tong DS: Summary Time Spent with Patient providing and/or coordinating discharge services: Greater than 30 minutes Status at Discharge Functional status at discharge: uses cane/walker Overall status at discharge: patient is progressing back to baseline Mental Status: mental status grossly normal Speech and Movement: speech and movement normal Mood: congruent mood Affect: normal affect Quality:SDOH Health Related Social Needs: No Data to Display Exam Narrative Exam Narrative: Neuro:alert and oriented X 4 - No new neurological focal deficit, residual left sided weakness/partial hemiplegia Resp: Unlabored breathing, clear lung bilaterally Cardio: regular rhythm, S1, S2, positive pulses to all 4 ext GI: Abdomen is not distended, soft and non tender, bowel sounds are present Integumentary: No skin lesions or rash Extremities: strength 5/5 to right limbs , 3-4/5 to left ext., unable to quarter lining smoother w left hand or move left foot Psych: RASS 0, congruent mood and normal affect. Psych Mental Status: mental status grossly normal Speech and Movement: speech and movement normal Mood: congruent mood Affect: normal affect DS: Data Vitals/I&O Vitals and I&O: Vital Signs Temperature 35.9 C L 05/02/24 07:34 Temperature Source Tympanic 05/02/24 07:34 Pulse 64 05/02/24 07:34 Pulse 57 L 05/01/24 14:00 Respiratory Rate 19 05/02/24 07:34 Respiratory Effort Normal 05/01/24 19:57 Respiratory Depth Normal 05/01/24 19:57 Respiratory Pattern Normal 05/01/24 19:57 Blood Pressure 139/98 H 05/02/24 07:34 Blood Pressure Mean 86 05/01/24 14:00 Pulse Oximetry 91 L 05/02/24 07:34 Oxygen Delivery Method Room Air 05/02/24 07:34 Oxygen Flow Rate 0 05/02/24 07:34 Pain Level 0 05/02/24 07:34 Comment Nurse notified 05/01/24 19:17 Intake & Output 05/01/24 05/01/24 05/02/24 11:59 23:59 11:59 Intake Total 2140 / 2140 990 / 990 Balance 2140 / 2140 990 / 990 Weight 101.151 kg 101.2 kg Intake: IV 1500 / 1500 990 / 990 Oral 640 / 640 Other: Urine Color Pale Urine Appearance Clear Clear Urine Odor None Comment assisted to tiolet by physical therapist Data Completed and Pending Labs on day of discharge: Labs from last 24 hours 05/02/24 05/02/24 05/02/24 11:00 09:13 06:20 WBC 9.07 RBC 4.54 Hgb 13.8 Hct 40.2 MCV 89 MCH 30.4 MCHC 34.3 RDW 12.3 Plt Count 260 MPV 12.1 H Immature Gran % 0.2 Neutrophils % 63.5 Lymphocytes % 25.1 Monocytes % 6.2 Eosinophils % 4.4 Basophils % 0.6 Nucleated RBC % 0.0 Absolute Neutrophils 5.76 Absolute Lymphocytes 2.28 Absolute Monocytes 0.56 Absolute Eosinophils 0.40 Absolute Basophils 0.05 Sodium Pending 144 Potassium Pending 3.0 L Chloride Pending 103 Carbon Dioxide Pending 32.5 H Anion Gap Pending 8.5 BUN Pending 14 Creatinine Pending 1.1 H Est GFR (CKD-EPI 2020) Pending 59.34 Glucose Pending 115 H Calcium Pending 8.5 Magnesium Pending Total Bilirubin AST ALT Alkaline Phosphatase Troponin I Total Protein Albumin Urine Color Urine Clarity Urine pH Ur Specific [place] Urine Protein Urine Ketones Urine Blood Urine Nitrite Urine Bilirubin Urine Urobilinogen Ur Leukocyte Esterase Urine RBC Urine WBC Ur Epithelial Cells Urine Crystals Urine Bacteria Urine Casts Urine Mucus Ur Culture Indicated? Urine Glucose COVID-19 Source SARS-CoV-2 (PCR) Influenza Type A (PCR) Influenza Type B (PCR) RSV (PCR) 05/01/24 05/01/24 05/01/24 13:30 12:54 11:12 WBC 8.70 RBC 4.78 Hgb 14.8 Hct 42.6 MCV 89 MCH 31.0 MCHC 34.7 RDW 12.4 Plt Count 282 MPV 11.8 H Immature Gran % 0.3 Neutrophils % 69.4 Lymphocytes % 18.4 Monocytes % 7.6 Eosinophils % 3.6 Basophils % 0.7 Nucleated RBC % 0.0 Absolute Neutrophils 6.04 Absolute Lymphocytes 1.60 Absolute Monocytes 0.66 Absolute Eosinophils 0.31 Absolute Basophils 0.06 Sodium 140 Potassium 3.0 L Chloride 102 Carbon Dioxide 29.6 Anion Gap 8.4 BUN 19 H Creatinine 1.6 H Est GFR (CKD-EPI 2020) 37.85 Glucose 111 H Calcium 8.6 Magnesium 2.0 Total Bilirubin 0.70 AST 24 ALT 44 Alkaline Phosphatase 116 Troponin I 5 6 Total Protein 7.5 Albumin 3.4 Urine Color Yellow Urine Clarity Sl Cloudy Urine pH 6.0 Ur Specific [place] <= 1.005 Urine Protein Negative Urine Ketones Negative Urine Blood Negative Urine Nitrite Negative Urine Bilirubin Negative Urine Urobilinogen 0.2 Ur Leukocyte Esterase Trace H Urine RBC 0-2 Urine WBC 3-5 Ur Epithelial Cells Many Urine Crystals Negative Urine Bacteria Few Urine Casts Negative Urine Mucus Trace Ur Culture Indicated? No Urine Glucose Negative COVID-19 Source SARS-CoV-2 (PCR) Influenza Type A (PCR) Influenza Type B (PCR) RSV (PCR) 05/01/24 11:06 WBC RBC Hgb Hct MCV MCH MCHC RDW Plt Count MPV Immature Gran % Neutrophils % Lymphocytes % Monocytes % Eosinophils % Basophils % Nucleated RBC % Absolute Neutrophils Absolute Lymphocytes Absolute Monocytes Absolute Eosinophils Absolute Basophils Sodium Potassium Chloride Carbon Dioxide Anion Gap BUN Creatinine Est GFR (CKD-EPI 2020) Glucose Calcium Magnesium Total Bilirubin AST ALT Alkaline Phosphatase Troponin I Total Protein Albumin Urine Color Urine Clarity Urine pH Ur Specific [place] Urine Protein Urine Ketones Urine Blood Urine Nitrite Urine Bilirubin Urine Urobilinogen Ur Leukocyte Esterase Urine RBC Urine WBC Ur Epithelial Cells Urine Crystals Urine Bacteria Urine Casts Urine Mucus Ur Culture Indicated? Urine Glucose COVID-19 Source Nasopharynx SARS-CoV-2 (PCR) Negative Influenza Type A (PCR) Negative Influenza Type B (PCR) Negative RSV (PCR) Negative 05/01/24 13:30 Urine - Voided Urine Culture - Pending Preliminary micro results at discharge 05/01/24 13:30 Urine Culture - Pending Urine - Voided PFSH All Active Problems (Updated 05/02/24 @ 11:45 by Annita Tong APRN) Hypokalemia (Acute) DANIEL (acute kidney injury) (Acute) Weakness (Acute) Elevated LFTs (Acute) Disordered sleep (Acute) Low back pain (Acute) Foot contusion (Acute) actually redness Left foot drop (Acute) Able to mobilize using indoor motorized wheelchair (Acute) Ankle pain (Acute) Memory changes (Chronic) Left arm weakness (Acute) Contusion of bone (Acute) Left knee Left knee injury (Acute) Chronic migraine (Acute) Hypertension (Chronic) Right thalamic stroke (Chronic) Medical History Elbow fracture, right Social History (Updated 05/12/23 @ 14:21 by Grace Ohara) Smoking/Tobacco Use Status: Never Second Hand Exposure: Yes Smoking risk assessment performed?: Yes Alcohol Intake: current Alcohol Intake frequency: a few times a week Alcohol type: hard liquor and other Drug use: Socially Substance use type: does not use Housing: house Current gender identity: female Additional Social history: Social history unknown. Time Spent with Patient Time Spent with Patient: 70-84 minutes4 Time was spent: preparing to see the patient(eg.review tests), obtaining and/or reviewing separately otained hiistory, ordering medications,tests, procedures, referring, communicating with other health child care assistant, indepentently interpreting results, counseling the patient and care coordination
[2024-05-02 09:27] LABS: Magnesium 1.8 mg/dL (1.8-2.4)
[2024-05-02] MEDS: Potassium Bicarbonate/Cit AC 25 MEQ TABLET.EFF 50 MEQ PO (09:34)
[2024-05-02] MEDS: POTASSIUM CHLORIDE 20 MEQ/100 ML BAG 50 MEQ IV_INF (09:34)
[2024-05-02] MEDS: Multivitamin w/Minerals TAB 1 TAB PO (09:37)
[2024-05-02] MEDS: Pantoprazole 20 MG TABCR PO (09:37)
[2024-05-02] MEDS: Mirabegron 50 MG TABCR PO (09:37)
[2024-05-02] MEDS: Potassium Chloride 20 MEQ TABCR PO (09:37)
[2024-05-02] MEDS: Baclofen 10 MG TAB 5 MG PO (09:37)
[2024-05-02] MEDS: Pregabalin 50 MG CAP PO (09:38)
[2024-05-02] MEDS: Cyanocobalamin 500 MCG TAB 1000 MCG PO (09:38)
[2024-05-02] MEDS: DULoxetine 30 MG CAP 60 MG PO (09:39)
[2024-05-02 11:10] VITALS: BP 140/89; PULSE 66; RESP 18; TEMP 37.3; O2SAT 91
[2024-05-02 11:10] LABS: Anion Gap 7.7 mmol/L (3-11); BUN 12 mg/dL (7-18); CO2 32.3 mmol/L (21.0-32.0); CREATININE 1.1 mg/dL (0.55-1.02); Calcium 8.9 mg/dL (8.5-10.1); Chloride 103 mmol/L (98-107); Estimated GFR 59.34 (mL/min/1.73m2); Glucose 106 mg/dL (74-106); Potassium 4.2 mmol/L (3.5-5.1); Sodium 143 mmol/L (136-145)
--- NOTE | 2024-05-02 12:03 | PDOC.HHF2F_ITS ---
Home Health Referral Home Health Orders Clinical synopsis of why skilled professionals are needed: This 53-year-old female patient with a past medical history of right thymic stroke with left hemiparesis, hypertension, and elevated LFTs presented to the emergency room at [facility] via EMS for evaluation of fatigue, altered mental status with slurred speech. Upon arrival to the ED symptoms of slurred speech and altered mental status and resolved but the patient remained hypotensive with SBP in the 80s without tachycardia or tachypnea.. Patient denied any ill contacts. The patient reported that she might have doubled her dose of losartan this morning by accident. The workup in the ED was significant for negative head CT and CTA. EKG showed normal sinus rhythm heart rate 64 without signs of acute ischemia or injuries. Chemistry was remarkable for potassium at 3.0, creatinine at 1.6 from baseline 0.8. The patient was treated with IV fluid and potassium supplementation in the ED. Hospitalist was consulted and the patient admitted to the medical surgical floor for acute kidney injury, hypokalemia, hypotension. When seen in room, patient confirmed full CODE STATUS. Patient mention that the only symptom that she had this morning was feeling of tiredness and weakness in her voice. The patient denied weakness, dizziness, change in vision, chest pain, nausea, vomiting, diarrhea or dysuria. The patient denied any previous history of atrial fibrillation or heart failure. The patient reported ongoing left hemiparesis status-post stroke evidenced by left leg and left arm weakness, left hand paralysis and inability move her left foot. During the stay, the patient continue to receive IVF and potassium supplementation. Losartan was held and metoprolol succinate converted to a lower dose of metoprolol tartrate. Blood pressure trended up and the patient's clincal picture improved with Cr down to 1.1. Hypokalemia has resolved. The patient will be discharged home and will resume her home medicine regimen; Losartan to be resumed on . The patient should hold off oral NSAIDs u ntil discussed with PCP during follow-up appointment. Physical recommendation for home health physical therapy. The patient would benefit from home health nursing to assist in compliance with change in home medicines; the patient should avoid enteral NSAIDS and take her home medicines as prescribed. Discussed with Dr. Ramirez Medical diagnosis necessitation home health referral: DANIEL, hypotension, hypokalemia Registered Nurse: Check all that apply Instruct on new or changed medication(s)/assess compliance: Ordered Assess for exacerbation of medical condition, instruct patient/caregivers on signs and symptoms to report for early detection: Ordered Physical Therapist: Check all that apply Increase strength & endurance for safe mobility at home: Ordered To design/establish home maintenance program: Ordered Fall reduction therapy program for patient with history of frequent falls: Ordered Home safety evaluation and teaching/gait training including stair management (if applicable): Ordered Home Bound Status Requires the aid of supportive device (check all that apply): Walker Describe why leaving home would require a considerable and taxing effort: Requires frequent rest periods Encounter Date and Reason: I certify that a FTF encounter for this patient was performed on May 02, 2024 and that such encounter was related to the primary reason the patient requires home health services. The encounter was conducted in the following manner: * By me as the certifying physician, STEREO MAP PLOTTER OPERATOR, PA or * By an inpatient physician, STEREO MAP PLOTTER OPERATOR or PA during an inpatient stay who communicated findings to me, Certification And Authentication I certify that I composed the above information based on my clinical judgment relating to this patient's medical condition and, if applicable, clinical findings communicated to me by the NPP or inpatient physician who performed the FTF encounter. Name of Provider that will be monitoring home health services: Conchis Light
[2024-05-02] MEDS: Metoprolol 50 MG TAB 100 MG PO (12:29)
[2024-05-02] MEDS: Diclofenac 1% Gel 100 GM TUBE TP (12:30)
== END 2024-05-02 12:46 | disposition home health service (06) | DRG 683 ==
LOC: ER 13:22 → MS 15:02
PROVIDERS: Nurse Practitioner Acute Care; Admitting Provider Family Medicine; Emergency Provider Nurse Practitioner Family; PCP Family Medicine; Visit Provider Family Medicine
DX: N17.9 Acute kidney failure, unspecified (principal); I69.354 Hemiplegia and hemiparesis following cerebral infarction affecting left non-dominant side; E87.6 Hypokalemia; I10 Essential (primary) hypertension; T46.5X1A Poisoning by other antihypertensive drugs, accidental (unintentional), initial encounter; I95.2 Hypotension due to drugs; R53.1 Weakness; M54.50 Low back pain, unspecified; M21.372 Foot drop, left foot; G43.809 Other migraine, not intractable, without status migrainosus; R41.3 Other amnesia; G47.9 Sleep disorder, unspecified
CPT/HCPCS: 00123; 36415; 70496; 70498; 80048; 80053; 87637; 93005; 96360; 96361; 96372; 97162; 97530; 99285; J1650; 71046; 81003; 81015; 83735; 84484; 85025; 87086; 93010; 99223; 99239; J3480

== ENCOUNTER 2024-05-08 13:01 | Outpatient (REF) | payer MEDICAID, SELFPAY ==
[2024-05-08 15:38] LABS: HCT 47.3 % (36.0-46.0); MCH 30.9 pg (27.0-33.0); MCHC 33.8 % (32.0-36.0); MCV 92 fL (80-95); MPV 12.9 fL (8.0-11.0); Platelet Count 324 10^3/uL (130-400); RBC 5.17 10^6/uL (3.93-5.22); RDW 12.5 % (11.7-14.6); RDW-SD 41.7 fL; WBC 9.01 10^3/uL (4.4-10.8)
[2024-05-08 16:27] LABS: ALT 38 U/L (14-59); AST 22 U/L (15-37); Albumin 3.5 g/dL (3.4-5.0); Alkaline Phosphatase 129 U/L (46-116); Anion Gap 13.5 mmol/L (3-11); BUN 17 mg/dL (7-18); CO2 21.5 mmol/L (21.0-32.0); Calcium 8.8 mg/dL (8.5-10.1); Chloride 105 mmol/L (98-107); Estimated GFR 66.53 (mL/min/1.73m2); Glucose 210 mg/dL (74-106); Potassium 4.2 mmol/L (3.5-5.1); Sodium 140 mmol/L (136-145); Total Protein 7.5 g/dL (6.4-8.2)
[2024-05-09 16:31] LABS: Lab Add On Test DONE
[2024-05-09 16:46] LABS: Hemoglobin A1C 5.6 % (<5.7)
== END 2024-05-08 13:02 | disposition home or self-care (01) ==
LOC: LBN 13:01
PROVIDERS: PCP Family Medicine; Visit Provider Family Medicine
DX: I10 Essential (primary) hypertension (principal); N17.9 Acute kidney failure, unspecified; E11.9 Type 2 diabetes mellitus without complications; R73.09 Other abnormal glucose
CPT/HCPCS: 80053; 85027; 83036

== ENCOUNTER 2024-05-21 16:11 | Outpatient (REF) | payer MEDICAID, SELFPAY | END 2024-05-21 16:12 | disposition home or self-care (01) | LOC: LBN 16:11 | PROVIDERS: PCP Family Medicine; Visit Provider Family Medicine | DX: N76.0 Acute vaginitis (principal) | CPT/HCPCS: 87480; 87510; 87660 ==

== ENCOUNTER 2024-10-24 08:37 | Outpatient (CLI) | payer MEDICAID, SELFPAY ==
[2024-10-24 12:50] LABS: Hemoglobin A1C 5.5 % (<5.7)
[2024-10-24 12:59] LABS: ALT 28 U/L (14-59); AST 25 U/L (15-37); Albumin 3.9 g/dL (3.4-5.0); Alkaline Phosphatase 127 U/L (46-116); Anion Gap 6.2 mmol/L (3-11); BUN 24 mg/dL (7-18); Bilirubin, Total 0.6 mg/dL (0.2-1.0); CO2 29.8 mmol/L (21.0-32.0); CREATININE 1.1 mg/dL (0.55-1.02); Calcium 9.8 mg/dL (8.5-10.1); Calculated LDL 78 mg/dL (<100); Chloride 102 mmol/L (98-107); Cholesterol 151 mg/dL (<200); Estimated GFR 59.34 (mL/min/1.73m2); Glucose 125 mg/dL (74-106); HDL Cholesterol 43 mg/dL (>or=50); Potassium 3.4 mmol/L (3.5-5.1); Sodium 138 mmol/L (136-145); Total Protein 8.5 g/dL (6.4-8.2); Triglyceride 150 mg/dL (<150)
[2024-10-25 10:07] LABS: Hepatitis C Ab w Rflx HCV PCR Negative (Negative)
[2024-10-29 15:58] LABS: Measles (Rubeola), IgM Negative (Negative)
== END 2024-10-24 08:38 | disposition home or self-care (01) ==
PROVIDERS: PCP Family Medicine; Visit Provider Family Medicine
DX: I10 Essential (primary) hypertension (principal); E11.9 Type 2 diabetes mellitus without complications; Z11.59 Encounter for screening for other viral diseases
CPT/HCPCS: 36415; 80053; 80061; 86765; 86803; 83036

== ENCOUNTER 2025-04-10 10:17 | Outpatient (CLI) | payer MEDICAID, SELFPAY ==
[2025-04-10 14:34] LABS: ALT 44 U/L (14-59); AST 29 U/L (15-37); Albumin 3.7 g/dL (3.4-5.0); Alkaline Phosphatase 114 U/L (46-116); Anion Gap 11.0 mmol/L (3-11); BUN 12 mg/dL (7-18); Bilirubin, Total 0.7 mg/dL (0.2-1.0); CO2 27.0 mmol/L (21.0-32.0); Calcium 9.0 mg/dL (8.5-10.1); Chloride 101 mmol/L (98-107); Glucose 101 mg/dL (74-106); Potassium 4.6 mmol/L (3.5-5.1); Sodium 139 mmol/L (136-145); Total Protein 7.8 g/dL (6.4-8.2)
== END 2025-04-10 10:18 | disposition home or self-care (01) ==
LOC: LOS 10:17
PROVIDERS: PCP Family Medicine; Visit Provider Family Medicine
DX: I10 Essential (primary) hypertension (principal); Z11.59 Encounter for screening for other viral diseases
CPT/HCPCS: 36415; 80053; 86765